=== PATIENT | male | born 1970 | race African-American/Black ===

== ENCOUNTER 2017-05-15 07:02 | Inpatient (IN) ==
[2017-05-15] MEDS ORDERED: ENOXAPARIN 60 MG/0.6 ML SYRINGE ONE (07:04)
[2017-05-15] MEDS ORDERED: ETOMIDATE 20 MG/10 ML VIAL IV ONE ×2 (07:05→07:36)
[2017-05-15] MEDS ORDERED: VECURONIUM 10 MG VIAL IV ONE ×2 (07:05→07:37)
[2017-05-15] MEDS ORDERED: ENOXAPARIN 60 MG/0.6 ML SYRINGE SUBCUT ONE (07:06)
[2017-05-15] MEDS ORDERED: HEPARIN/NACL 0.9% 2 UNITS/ML 500 ML IV ONE (07:21)
--- NOTE | 2017-05-15 07:23 | Emergency Department Note ---
Dana Radford Emily, am scribing for, and in the presence of, Ochoa Beltran MD 07:13. Ruby Radford James D, MD, personally performed the services described in this documentation, ascribed by Gabriela Cortez in my presence, and it is both accurate and complete 719 . Arrival - Arrival Stated Complaint: chest pain/ resp distress. Mode of Arrival: Stretcher Limitations: No Limitations Source: Patient, EMS, RN Notes Reviewed - History of Present Illness HPI Narrative: Pt is a 47 y/o male who was brought to ED by EMS for further evaluation of elevated STEMI while at home. EMS upon arrival pt was diaphoretic, room air was 84, low grade fever of 100, and chest pain with SOB. EMS notes pt was stating "I can't breath, can't breath." Pt states he has [place] and SOB, but denies diaphoresis and non radiating pain. Pt is a smoker, but denies heart issues, taking aspirin or lovenox daily. Pt is being intubated upon arrival due to SOB arriving in ED. Onset (ago): hour(s) Consistency: constant Severity: moderate, severe Severity scale (1-10): 8 Quality: aching, sharp Allergies/Adverse Reactions: Allergies Allergy/AdvReac Type Severity Reaction Status Date / Time No Known Allergies Allergy Unverified 05/15/17 07:13 Review of System - Review of System 12 point system: reviewed and no additional remarkable complaints except as stated - Review of System Constitutional: Present: diaphoresis, fever (low grade of 100) Respiratory: Present: respiratory distress (SOB) Cardiovascular: Present: chest pain (non radiating). Absent: syncope Gastrointestinal: Absent: abdominal pain, nausea Musculoskeletal: Absent: arm pain, neck pain Skin: Absent: rash Neurological: Present: headache Medical,Surgical,& Family Hx - Social History Marital Status: Single Functional capacity: independent ambulation Exam Vital Signs: Vital Signs Temperature 100.0 F H 05/15/17 07:04 Pulse Rate 104 H 05/15/17 07:04 Respiratory Rate 48 H 05/15/17 07:04 Blood Pressure 127/66 05/15/17 07:04 O2 Sat by Pulse Oximetry 100 05/15/17 07:17 GENERAL: This is a well-nourished well-developed acutely ill appearing black male in no apparent distress. Diaphoretic. VITAL SIGNS: Reviewed O2 sat was 80% in route. HEENT: Head is atraumatic and normocephalic. Pupils are equal round react to light. Extraocular movements are intact. Oropharynx is benign with moist mucous membranes. NECK: Neck is soft and supple without tenderness. There are no masses. There is no lymphadenopathy. LUNGS: Lungs are clear to auscultation. Chest rises symmetrically. There is no chest wall tenderness. CV: Heart is regular rate and rhythm without murmurs rubs or gallops. ABDOMEN: Abdomen is soft, nontender to palpation. There are no abdominal abnormal masses palpated. There is no organomegaly. Bowel sounds are present and active. SKIN: Skin is warm and dry. No rash. EXTREMITIES: Patient has full range of motion without tenderness. There is no pedal edema. NEUROLOGIC: Awake alert and oriented 4. Cranial nerves II through XII are grossly intact. Motor is 5 over 5 in all extremities bilaterally. Deep tendon reflexes are 2+ and bilaterally equal. Course Course Narrative: Patient received aspirin, Lovenox, etomidate, and vecuronium. The patient was intubated prior to transfer to the [facility] for left heart cath and possible PCI. - Consultations Consultation #1: Patient was taken immediately to the [facility] by Dr. Barrios due to patient's abnormal EKG. The patient was given Lovenox and aspirin prior to transfer to the [facility]. Patient will be placed on propofol infusion Time: 07:23 Procedures - Intubation Time out performed: No sedative: Etomidate Mg Given: 20 paralytic: Vecuronium Mg Given: 10 Laryngoscope: fiber optic video scope ET Tube Size: 8 ET Tube Uncuffed: No Tube Secured Depth (cm): 23 Tube Secured Location: teeth Tube Placement Confirmation: visualized tube passing through cords, equal breath sounds bilaterally, no breath sounds over epigastrium, confirmation detector color change Patient Tolerated Procedure: well Intubation Complications: none Results - Labs Lab Results: I have reviewed the patients labs - EKG EKG results: interpreted by ERMD - Impressions EKG: Sinus tachycardia with a rate of 105, peak T waves consistent with hyperkalemia. Slight elevation of ST segments in V3 V4 without reciprocal changes. - Diagnostic Findings Procedure: Chest x-ray: image reviewed by me Critical Care Time Critical Care Time: No Disposition Clinical Impression: Chest pain, Respiratory distress, Abnormal EKG, Fever Case discussed with: patient, patient's family Disposition: Still a Patient Condition: Critical
[2017-05-15 07:35] LABS: Basophils # 0.1 10*3/uL (0.0-0.2); Basophils % 0.4 % (0.0-0.8); Eosinophils # 0.1 10*3/uL (0.0-0.87); Eosinophils % 0.5 % (0.00-10.9); Hematocrit 46.9 VOL% (42.0-52.0); Hemoglobin 15.6 GM/DL (14.0-18.0); Immature Granulocytes % 0.7 %; Immature Granulocytes Absolute 0.12 #; Lymphocytes # 2.1 10*3/uL (1.4-4.0); Lymphocytes % 12.4 % (21.2-54.2); Mean Corpuscular HGB Conc 33.3 GM/DL (32-36); Mean Corpuscular Hemoglobin 28 PG (27-34); Mean Corpuscular Volume 84.2 FL (87-102); Mean Platelet Volume 9.2 FL (9.6-12.0); Monocytes # 0.7 10*3/uL (0.11-0.8); Monocytes % 4.1 % (1.7-12.7); Neutrophils # 13.9 10*3/uL (1.4-7.4); Neutrophils % 81.9 % (38.7-73.9); Platelet Count 250 T/CUMM (130-400); Red Blood Count 5.57 MC/CUMM (3.8-5.5); Red Cell Distribution Width 14.9 % (9.3-17.3)
--- NOTE | 2017-05-15 07:38 | XRay Report ---
Portable chest Date: 05/15/2017 Clinical history: Chest pain Comparison: 09/17/2014 Technique: Portable AP supine chest Findings: The heart is small and compressed by the over expanded lungs. Artifactual densities limit the exam. Endotracheal tube is in satisfactory position. Stable mediastinum and osseous structures. Calcification in the aortic knob. Impression: Endotracheal tube in satisfactory position. The lungs are significantly over expanded. Artifactual densities limit the exam. PROCEDURE INTERPRETED AT [facility] DEPARTMENT OF RADIOLOGY Final Report Signed by: Dr. Brenda Manzanares
[2017-05-15 07:39] LABS: Barbiturates Screen,Urine Negative (Negative); Benzodiazepines Screen,Urine Negative (Negative); Cannabinoid Screen,Urine Positive (Negative); Opiate Screen,Urine Negative (Negative); Phencyclidine Screen,Urine Negative (Negative)
[2017-05-15 07:40] LABS: Apearance,Urine Clear (Clear); Bilirubin,Urine Negative (Negative); Blood, Urine Trace mg/dL (Negative); Glucose,Urine (UA) Negative (Negative); Ketones,Urine 25 mg/dL (Negative); Mucus,Urine Occasional /LPF (Occasional); Nitrite,Urine Negative (Negative); Protein,Urine 30 MG/DL; RBC,Urine 2 /HPF (0-4); Squamous Epithelial Cell,Urine Occasional /HPF (0-10); Urine Color Yellow (Yellow); WBC,Urine <1 /HPF (0-6)
--- NOTE | 2017-05-15 07:45 | EKG Report ---
Stationary ECG Study [facility] ER Test Date: 05/15/2017 7:08:28 AM Pat Name: ABDIRAHMAN RAMIREZ Department: Room: C001 Gender: M Utility Ar[employer]ist: : 1970 Requested by: Ochoa Clemente Order Number: [id number] Reading MD: ELIDIA JOHNSON Intervals Colver Rate: 97 P: 78 NC: 147 QRS: 34 QRSD: 82 T: 62 QT: 332 QTc: 386 Interpretive Statements SINUS RHYTHM WITH MARKED SINUS ARRHYTHMIA Electronically Signed On 05-15-17 16:49:06 CDT by ELIDIA JOHNSON [email or web address]
[2017-05-15 07:56] LABS: Albumin 4.1 G/DL (3.4-5.0); Bilirubin,Total 0.6 MG/DL (0.2-1.0); Calcium 9.1 MG/DL (8.5-10.1); Magnesium 2.3 MG/DL (1.8-2.4); Osmolality,Calculated 275.4 MOS/KG (273-304); Potassium 3.9 MMOL/L (3.5-5.1); Total Protein 7.8 G/DL (6.4-8.3)
[2017-05-15 08:02] LABS: D-Dimer <= 0.5 MG/L FEU; INR 0.9; PT Patient Result 9.4 SECS; Partial Thromboplastin Time 28.9 SECS (0-40)
--- NOTE | 2017-05-15 08:09 | Cardiac Catheterization ---
Date of Procedure:: 05/15/17 Pre-op Diagnosis: Chest pain hypertension abnormal EKG Post-op diagnosis: same Procedure: Cardiac catheterization procedure note #1 left heart catheterization #2 selective coronary angiography #3 left ventriculography #4 aortogram Ximenaipaque was used for procedure Description of procedure The patient was brought in by Manjeet with acute chest pain and shortness of breath and required intubation emergency room. EKG was abnormal. Following sterile preparation draping of the right groin local anesthesia was achieved by infiltration 1% Xylocaine. Using a Cook needle the right femoral artery was cannulated and a #6 sheath was inserted. A 6 Guamanian pigtail catheter was advanced retrograde across her valve into the left ventricle and the end-diastolic pressure was recorded. Left ventriculography was performed the MENDEZ projection using 24 cc of contrast. A pullback was made across phytic valve. An aortogram was then done in the PERUVIAN projection using 40 cc of contrast. Catheter change for a 6 Guamanian left Benny catheter and the left main was cannulated and coronary angiography was performed in several MENDEZ and PERUVIAN projections. Catheter change for a 6 Guamanian right Amplatz catheter and right coronary atrophy was performed in MENDEZ and PERUVIAN projections. Catheter and sheath were then removed and the femoral arch Forest sealed percutaneous minx closure device with prompt cessation of bleeding and prompt return of femoral and foot pulses. The patient received IV nitroglycerin and IV labetalol to begin blood pressure control. Hemodynamic data Aortic pressure 206/116 mean 156 Left ventricle 206/34 Selective coronary angiography Left main trunk is patent bifurcates. The LAD is a large vessel wraps on the apex. It is mild proximal irregularities only. The diagonal branch is widely patent. The circumflex was small and patent. The dominant coronary artery is widely patent throughout its course with mild luminal irregularities only. Left ventriculography Ejection fraction 55%. No wall motion abnormalities. No mitral regurgitation. Aortogram The proximal aortic root is normal in size and contour. No aortic insufficiency. No aortic dissection. Conclusions #1 increased LVEDP 34 #2 ejection fraction 55% no wall motion abnormalities #3 no mitral regurgitation #4 no aortic valve gradient #5 widely patent coronary arteries with mild luminal irregularities only #6 aortogram-no AI and no dissection Disposition this patient has untreated hypertensive heart disease. Blood pressure 206/116 and EDP was 34. The coronary arteries are widely patent and ventricular function is preserved. Aortogram showed no aortic dissection. Urine drug screen is pending. He will be started on BP medication and the weaned will be weaned as tolerated. His sister Cindy had to go to work and did not stay for the heart cath results. Implants: None Anesthesia: moderate conscious sedation Surgeon / Physician: Pierce Barrios Estimated blood loss: minimal Specimens: none sent Condition: stable Disposition: ICU/CCU - Medications / Follow-up
[2017-05-15] MEDS ORDERED: ONDANSETRON 4 MG/2 ML VIAL IV PRN (08:10)
--- NOTE | 2017-05-15 08:22 | Cardiology History & Physical ---
History of Present Illness History of present illness: History and physical 47-year-old man was at a friend's house early this a.m. and called EMS for chest pain and shortness of breath. EKG showed sinus rhythm with preserved airways and ST elevation. Blood pressure was 180/110 emergency room patient intubated for respiratory distress by Dr. Beltran. Minimal history was obtained from his sister Cindy. The patient has no home and is a vagabond. He does drink alcohol regularly and he smokes at least one pack of cigarettes daily. She is unsure about his recreational drug history. He has been told that he had hypertension in the past but does not take medication. No history of stroke. No history of diabetes. The sister is not aware of any other history of chest pain. The patient is a . His is . He has 4 children. He had intestinal surgery as a child and no other surgical procedures. Blood pressure is 180/110 pulse is 102 and regular the patient is intubated and sedated. Rhythm is tachycardic but I hear no murmur or gallop. Decreased breath sounds but clear. Neck veins are flat. Femoral pulses are 2+ without bruit abdomen is soft benign distal pulses 2+ symmetric Impression New onset chest pain and shortness of breath with abnormal EKG. This does not look STEMI by EKG Untreated hypertension Tobacco abuse EtOH abuse Chest x-ray shows hyperinflated lung field with a vertical heart but no CHF or infiltrate Plan Emergent heart cath. I discussed the cath with his sister Cindy who signed the consent. Begin BP meds with IV nitro and beta-ankur Lab data pending Consult pulmonary for ventilator support Allergies Allergy/AdvReac Type Severity Reaction Status Date / Time No Known Allergies Allergy Unverified 05/15/17 07:13 Medical,Surgical,& Family Hx - Medical History Cardio: History of: Hypertension - Social History Smoking Status: Current every day smoker Frequency of Alcohol Use: None Type of Drug Use: None Cardiology Physical Exam - Constitutional Vitals: Vital Signs Temp Pulse Resp BP Pulse Ox 100.0 F H 104 H 48 H 127/66 100 05/15/17 07:04 05/15/17 07:04 05/15/17 07:04 05/15/17 07:04 05/15/17 07:17 Intake and Output 05/14/17 05/15/17 05/15/17 23:59 07:59 15:59 Output Total 200 / 200 Balance -200 / -200 Output: Urine 100 / 100 Post Void Residual Amount 100 / 100 Uretheral (Richter) 100 / 100 Other: Voiding Method Indwelling Catheter Weight 72.575 kg Patient Weight 05/15/17 23:59 Weight 72.575 kg Result/EKG - Labs CBC & BMP: 05/15/17 07:10 05/15/17 07:10 Labs: Laboratory Results - last 24 hr 05/15/17 05/15/17 05/15/17 07:10 07:10 07:10 WBC RBC Hgb Hct MCV MCH MCHC RDW Plt Count MPV Neut % (Auto) Lymph % (Auto) [place] % (Auto) Eos % (Auto) Baso % (Auto) Neut # (Auto) Lymph # (Auto) [place] # (Auto) Eos # (Auto) Baso # (Auto) Immature Gran % Nucleated RBC % Immature Gran # Nucleated RBCs # Immature Plt Fraction INR 0.9 PT Patient/Control Mix 9.4 D-Dimer, Quantitative <= 0.5 Circ Anticoag PTT 28.9 Sodium 140 Potassium 3.9 Chloride 103 Carbon Dioxide 28 Anion Gap 12.9 BUN 7 Creatinine 0.90 GFR Calculation 131 BUN/Creatinine Ratio 7.00 Glucose 80 Calculated Osmolality 275.4 Calcium 9.1 Magnesium 2.3 Total Bilirubin 0.60 AST 36 ALT 30 Alkaline Phosphatase 71 Troponin I Total Protein 7.8 Albumin 4.1 Globulin 3.7 H Albumin/Globulin Ratio 1.1 Urine Color Yellow Urine Appearance Clear Urine pH 5.0 Ur Specific Hurricane 1.030 Urine Protein 30 Urine Glucose (UA) Negative Urine Ketones 25 Urine Blood Trace Urine Nitrate Negative Urine Bilirubin Negative Urine Urobilinogen 2.0 H Urine Leukocytes Negative Urine RBC 2 Urine WBC <1 Ur Squamous Epith Cells Occasional Urine Mucus Occasional Ur Culture Indicated? Ordered separately Urine Opiates Screen Ur Barbiturates Screen Ur Phencyclidine Scrn U Amphetamine/Methamph U Benzodiazepines Scrn U Cocaine Metab Screen U Cannabinoids Screen 05/15/17 05/15/17 05/15/17 07:10 07:10 07:10 WBC 17.0 H RBC 5.57 H Hgb 15.6 Hct 46.9 MCV 84.2 L MCH 28 MCHC 33.3 RDW 14.9 Plt Count 250 MPV 9.2 L Neut % (Auto) 81.9 H Lymph % (Auto) 12.4 L [place] % (Auto) 4.1 Eos % (Auto) 0.5 Baso % (Auto) 0.4 Neut # (Auto) 13.9 H Lymph # (Auto) 2.1 [place] # (Auto) 0.7 Eos # (Auto) 0.1 Baso # (Auto) 0.1 Immature Gran % 0.7 Nucleated RBC % 0.0 Immature Gran # 0.12 Nucleated RBCs # 0.00 Immature Plt Fraction 0.0 INR PT Patient/Control Mix D-Dimer, Quantitative Circ Anticoag PTT Sodium Potassium Chloride Carbon Dioxide Anion Gap BUN Creatinine GFR Calculation BUN/Creatinine Ratio Glucose Calculated Osmolality Calcium Magnesium Total Bilirubin AST ALT Alkaline Phosphatase Troponin I < 0.015 Total Protein Albumin Globulin Albumin/Globulin Ratio Urine Color Urine Appearance Urine pH Ur Specific Hurricane Urine Protein Urine Glucose (UA) Urine Ketones Urine Blood Urine Nitrate Urine Bilirubin Urine Urobilinogen Urine Leukocytes Urine RBC Urine WBC Ur Squamous Epith Cells Urine Mucus Ur Culture Indicated? Urine Opiates Screen Negative Ur Barbiturates Screen Negative Ur Phencyclidine Scrn Negative U Amphetamine/Methamph Negative U Benzodiazepines Scrn Negative U Cocaine Metab Screen Positive H U Cannabinoids Screen Positive H Quality Measures - VTE Contraindication to Mechanical VTE Prophylaxis: Trauma to Legs
[2017-05-15] MEDS ORDERED: SODIUM CHLORIDE 0.9% 1,000 ML IV SCH (08:30)
[2017-05-15 08:55] LABS: Risk Ratio 1.44; VLDL CHOLESTEROL 15.6 MG/DL
[2017-05-15] MEDS ORDERED: LABETALOL 100 MG/20 ML VIAL IV ONE (09:31)
[2017-05-15] MEDS ORDERED: LIDOCAINE 1% 20 ML VIAL ONE (09:31)
[2017-05-15] MEDS ORDERED: NITROGLYCERIN 50 MG/250 ML BOTTLE IV ONE (09:31)
[2017-05-15] MEDS ORDERED: PROPOFOL 1,000 MG/100 ML BOTTLE IV ONE ×3 (09:31→10:33)
[2017-05-15 09:57] LABS: ABG Base Excess -2.5 MMOL/L (-2.5-2.5); ABG HCO3 21.4 MMOL/L (20-26); ABG Oxygen Saturation 55.6 % (95-100); ABG TCO2 28.5 MMOL/L (23-27)
[2017-05-15 09:59] LABS: ABG PH 7.134 (7.35-7.45)
[2017-05-15 10:00] LABS: ABG PCO2 92.5 MM HG (35-48); ABG PO2 39.9 MM HG (80-95)
[2017-05-15 10:27] LABS: ABG Base Excess -2.8 MMOL/L (-2.5-2.5); ABG HCO3 21.8 MMOL/L (20-26); ABG Oxygen Saturation 84.4 % (95-100); ABG PCO2 60.6 MM HG (35-48); ABG PH 7.245 (7.35-7.45); ABG PO2 58.5 MM HG (80-95); ABG TCO2 23.2 MMOL/L (23-27)
[2017-05-15] MEDS ORDERED: MIDAZOLAM 2 MG/2 ML VIAL ONE (11:17)
[2017-05-15] MEDS: MIDAZOLAM 2 MG/2 ML VIAL IV PRN ×6 (11:20→22:34)
[2017-05-15] MEDS: PROPOFOL 1,000 MG/100 ML BOTTLE IV SCH ×3 (11:27→18:52)
[2017-05-15] MEDS: PANTOPRAZOLE 40 MG VIAL IV SCH (11:42)
[2017-05-15] MEDS: ALBUTEROL/IPRATROPIUM 3 ML NEB RESP TX SCH ×3 (12:00→19:47)
[2017-05-15] MEDS ORDERED: methylPREDNISolone SOD SUC 125 MG/2 ML VIAL ONE (12:30)
[2017-05-15] MEDS: methylPREDNISolone SOD SUC 40 MG/1 ML VIAL IV SCH ×3 (12:36→23:12)
[2017-05-15] MEDS: FAMOTIDINE 20 MG/2 ML VIAL IV SCH ×2 (12:44→18:34)
[2017-05-15] MEDS: LISINOPRIL 10 MG TABLET NG SCH (12:49)
[2017-05-15] MEDS: CARVEDILOL 6.25 MG TABLET NG SCH ×2 (12:50→16:55)
--- NOTE | 2017-05-15 14:24 | Pulmonology Consult Note ---
Assessment and Plan (1) Smoker Status: Acute Assessment and plan: The patient apparently smokes and uses drugs. Current Visit: Yes (2) COPD exacerbation Status: Acute Assessment and plan: The patient had respiratory distress and has considerable bronchospasm and CO2 retention. We will continue steroids and bronchodilator therapy. Current Visit: Yes (3) Chest pain Status: Acute Assessment and plan: Patient came in with chest pain and was taken to the catheterization lab. His coronaries were apparently open. Current Visit: Yes (4) Respiratory distress Status: Acute Assessment and plan: The patient was in distress and was intubated. Will keep him sedated for now. Current Visit: Yes (5) Abnormal EKG Status: Acute Assessment and plan: Patient has an abnormal EKG probably from cocaine usage. Current Visit: Yes History of Present Illness Chief complaint: Ventilator management History of present illness: Mr. Pérez is a 47 year old black male that apparently is a smoker nondrinker and has been using cocaine. The paramedics were called to a friend's house and he was having severe distress with elevated blood pressure. He apparently had respiratory distress and had to be intubated. He was taken to the catheterization lab and his coronary arteries were okay. He has been agitated on the ventilator. He had significant CO2 retention and hypoxemia. His chest x -ray suggests severe COPD. He has been having wheezing and is going be kept on the ventilator for now. He is finally sedated and more comfortable. He has a past history of hypertension and he is a smoker. Allergies Allergy/AdvReac Type Severity Reaction Status Date / Time No Known Allergies Allergy Unverified 05/15/17 07:13 ROS unobtainable: due to endotracheal tube (He is unable to give any history) Exam (Pulmonay) H&P - Constitutional Vitals: Period Temp Pulse Resp BP Sys/Hernandez Pulse Ox Last 24 Hr 100.0 F-100.0 F 100-104 17-48 127-127/66-66 86-100 General appearance: under weight, other (The patient is sedated now on the ventilator.) - Head Head exam: Present: normal inspection, normocephalic - Eye Eye exam: Present: EOMI. Absent: scleral icterus Pupils: Present: SKYLAR - ENT ENT exam: Present: normal exam, other (ET tube is in good position) - Neck Neck exam: Absent: lymphadenopathy, thyromegaly - Respiratory Respiratory exam: Present: wheezes (Patient has fair breath sounds but does have some wheezing.) - Cardiovascular Cardiovascular exam: Present: regular rate and rhythm. Absent: gallop, systolic murmur - GI/Abdominal GI/Abdominal exam: Present: normal bowel sounds, soft. Absent: organomegaly, tenderness - Extremities Exam Extremities exam: Absent: calf tenderness, edema - Neurological Exam Neurological exam: Present: altered (Patient gets agitated easily.) - Psychiatric Psychiatric exam: Present: agitated, anxious - Skin Skin exam: Present: warm, dry Medical,Surgical,& Family Hx - Medical History Cardio: History of: Hypertension - Social History Smoking Status: Current every day smoker Frequency of Alcohol Use: Frequently Type of Drug Use: Cocaine Results - Labs CBC & BMP: 05/15/17 07:10 05/15/17 07:10 Labs: PO2 is 58 with a PCO2 of 60 and a pH of 7.24 - Diagnostic Findings Procedure: Chest x-ray: image reviewed by me, report reviewed by me (Chest x- ray suggests severe COPD changes.) Quality Measures - VTE Contraindication to Mechanical VTE Prophylaxis: Trauma to Legs
--- NOTE | 2017-05-15 18:32 | ECHO Report ---
Maynor Pérez Exam Date: 05/15/2017 08:49 Referring Physician: Technologist: Giovanna Hansen RDCS Age: 47 Ht (in): 70 Wt (lb): 160 Gender: M Exam Location: [facility] Echo Indications: Chest pain, unspecified, Respiratory distress - on vent, Abnormal electrocardiogram [ECG] [EKG], CAD, Fever, Nicotine dependence, cigarettes, uncomplicated, ETOH abuse, Positive drug screen BP: 99 / 58 HR: 93 Rhythm: Sinus Technical Quality: Good IMPRESSIONS EF 60 % . Moderate left ventricular hypertrophy. Grade I/IV diastolic dysfunction (abnormal relaxation filling pattern), normal to mildly elevated filling pressures. The right ventricle is normal in size and function. The right atrium is normal in size. The left atrium is normal in size. Morphologically normal mitral valve. No mitral valve regurgitation. The aortic valve is trileaflet and has normal motion. No aortic valve regurgitation. Mild tricuspid valve regurgitation. PAP35 mmHG. Pulmonic valve not well visualized. Normal pericardium without effusion. Normal ascending aorta dimension. MEASUREMENTS (Male / Female) Normal Values 2D ECHO LV Diastolic Diameter PLAX 4.3 cm 4.2 - 5.9 / 3.9 - 5.3 cm LV Systolic Diameter PLAX 2.0 cm LV Fractional Shortening PLAX 53.4 % IVS Diastolic Thickness 0.9 cm 0.6 - 1.0 / 0.6 - 0.9 cm LVPW Diastolic Thickness 1.0 cm 0.6 - 1.0 / 0.6 - 0.9 cm RV Internal Dim ED PLAX 2.9 cm Aortic Root Diameter 2.9 cm LA Systolic Diameter LX 2.4 cm 3.0 - 4.0 / 2.7 - 3.8 cm DOPPLER TR Peak Velocity 252.0 cm/s TR Peak Gradient 25.4 mmHg FINDINGS Left Ventricle EF 60 % .moderate left ventricular hypertrophy. Grade I/IV diastolic dysfunction (abnormal relaxation filling pattern), normal to mildly elevated filling pressures. Right Ventricle The right ventricle is normal in size and function. Right Atrium The right atrium is normal in size. Left Atrium The left atrium is normal in size. Mitral Valve Morphologically normal mitral valve. No mitral valve regurgitation. Aortic Valve The aortic valve is trileaflet and has normal motion. No aortic valve regurgitation. Tricuspid Valve Morphologically normal tricuspid valve. Mild tricuspid valve regurgitation. .PAP35 mmHG. Pulmonic Valve Pulmonic valve not well visualized. Pericardium Normal pericardium without effusion. Aorta Normal ascending aorta dimension. Dimitris Bariros (Electronically Signed) Final Date: 15 May 2017 18:22
[2017-05-16] MEDS: ALBUTEROL/IPRATROPIUM 3 ML NEB RESP TX SCH ×7 (00:20→23:55)
[2017-05-16] MEDS: PROPOFOL 1,000 MG/100 ML BOTTLE IV SCH ×4 (00:57→11:33)
[2017-05-16] MEDS: MIDAZOLAM 2 MG/2 ML VIAL IV PRN ×4 (02:14→12:45)
[2017-05-16 04:23] LABS: ABG Base Excess 1.9 MMOL/L (-2.5-2.5); ABG HCO3 26.1 MMOL/L (20-26); ABG Oxygen Saturation 97.9 % (95-100); ABG PCO2 49.2 MM HG (35-48); ABG PH 7.365 (7.35-7.45); ABG TCO2 24.5 MMOL/L (23-27)
[2017-05-16 06:02] LABS: Basophils % 0.1 % (0.0-0.8); Eosinophils # 0.1 10*3/uL (0.0-0.87); Eosinophils % 0.4 % (0.00-10.9); Hematocrit 43.7 VOL% (42.0-52.0); Hemoglobin 14.5 GM/DL (14.0-18.0); Immature Granulocytes % 0.4 %; Immature Granulocytes Absolute 0.05 #; Lymphocytes # 1.4 10*3/uL (1.4-4.0); Lymphocytes % 10.2 % (21.2-54.2); Mean Corpuscular HGB Conc 33.2 GM/DL (32-36); Mean Corpuscular Hemoglobin 28 PG (27-34); Mean Platelet Volume 11.3 FL (9.6-12.0); Monocytes # 0.3 10*3/uL (0.11-0.8); Monocytes % 2.2 % (1.7-12.7); Neutrophils # 11.6 10*3/uL (1.4-7.4); Neutrophils % 86.7 % (38.7-73.9); Platelet Count 126 T/CUMM (130-400); Red Blood Count 5.14 MC/CUMM (3.8-5.5); Red Cell Distribution Width 14.7 % (9.3-17.3); White Blood Count 13.4 T/CUMM (4-12)
[2017-05-16] MEDS: methylPREDNISolone SOD SUC 40 MG/1 ML VIAL IV SCH ×3 (06:30→17:16)
[2017-05-16] MEDS: FAMOTIDINE 20 MG/2 ML VIAL IV SCH ×2 (06:31→18:47)
--- NOTE | 2017-05-16 07:23 | Cardiology Progress Note ---
Cardiology - PN: Subj Interval history: Cardiology note 47-year-old man admitted yesterday with chest pain and shortness of breath requiring intubation. Cardiac cath showed patent coronaries with ejection fraction 55% and no aortic dissection. Urine drug screen positive for cocaine and marijuana. Sedated on diprovan. Telemetry shows sinus rhythm in the 70s Blood pressure 130/80 off IV nitro O2 sat 100 on 60% FiO2 Regular rhythm no murmur or gallop Decreased breath sounds but clear Abdomen soft benign Right groin soft and dry. No bruit or hematoma. Distal pulses 2+ Lab data White count 13.4 hemoglobin 14.5 hematocrit 43.7 platelet count 126,000 Echo shows ejection fraction of 60% with moderate concentric LVH, grade 1 diastolic dysfunction, normal LA size, structurally normal valves, mild TR PA pressure 35 and no effusion Chest x-ray shows hyperinflated lungs with vertical heart and no infiltrate or heart failure Impression Untreated hypertension Cocaine abuse Widely patent coronaries ejection fraction 55% by cath and no dissection Tobacco abuse EtOH abuse COPD exacerbation Plan Prednisone nebs Carvedilol 6.25 mg twice daily Lisinopril 10 mg daily Wean vent as tolerated Exam (Progress Note) - Constitutional Vitals: Period Temp Pulse Resp BP Sys/Hernandez Pulse Ox Last 24 Hr 98.1 F-99.2 F 67-103 12-24 76-139/51-94 95-100 Result/EKG - Labs CBC & BMP: 05/16/17 04:41 05/15/17 07:10 Labs: Laboratory Results - last 24 hr 05/15/17 05/15/17 05/15/17 07:10 07:10 07:10 WBC RBC Hgb Hct MCV MCH MCHC RDW Plt Count MPV Neut % (Auto) Lymph % (Auto) Curry % (Auto) Eos % (Auto) Baso % (Auto) Neut # (Auto) Lymph # (Auto) Curry # (Auto) Eos # (Auto) Baso # (Auto) Immature Gran % Nucleated RBC % Immature Gran # Nucleated RBCs # Immature Plt Fraction INR 0.9 PT Patient/Control Mix 9.4 D-Dimer, Quantitative <= 0.5 Circ Anticoag PTT 28.9 ABG pH ABG pCO2 ABG pO2 ABG HCO3 ABG Total CO2 ABG O2 Saturation ABG Base Excess Sodium 140 Potassium 3.9 Chloride 103 Carbon Dioxide 28 Anion Gap 12.9 BUN 7 Creatinine 0.90 GFR Calculation 131 BUN/Creatinine Ratio 7.00 Glucose 80 Calculated Osmolality 275.4 Calcium 9.1 Magnesium 2.3 Total Bilirubin 0.60 AST 36 ALT 30 Alkaline Phosphatase 71 Troponin I B-Natriuretic Peptide Total Protein 7.8 Albumin 4.1 Globulin 3.7 H Albumin/Globulin Ratio 1.1 Triglycerides Cholesterol LDL Cholesterol VLDL Cholesterol HDL Cholesterol Heart Disease Risk Ratio Urine Color Yellow Urine Appearance Clear Urine pH 5.0 Ur Specific Mcdermitt 1.030 Urine Protein 30 Urine Glucose (UA) Negative Urine Ketones 25 Urine Blood Trace Urine Nitrate Negative Urine Bilirubin Negative Urine Urobilinogen 2.0 H Urine Leukocytes Negative Urine RBC 2 Urine WBC <1 Ur Squamous Epith Cells Occasional Urine Mucus Occasional Ur Culture Indicated? Ordered separately Urine Opiates Screen Ur Barbiturates Screen Ur Phencyclidine Scrn U Amphetamine/Methamph U Benzodiazepines Scrn U Cocaine Metab Screen U Cannabinoids Screen 05/15/17 05/15/17 05/15/17 07:10 07:10 07:10 WBC 17.0 H RBC 5.57 H Hgb 15.6 Hct 46.9 MCV 84.2 L MCH 28 MCHC 33.3 RDW 14.9 Plt Count 250 MPV 9.2 L Neut % (Auto) 81.9 H Lymph % (Auto) 12.4 L Curry % (Auto) 4.1 Eos % (Auto) 0.5 Baso % (Auto) 0.4 Neut # (Auto) 13.9 H Lymph # (Auto) 2.1 Curry # (Auto) 0.7 Eos # (Auto) 0.1 Baso # (Auto) 0.1 Immature Gran % 0.7 Nucleated RBC % 0.0 Immature Gran # 0.12 Nucleated RBCs # 0.00 Immature Plt Fraction 0.0 INR PT Patient/Control Mix D-Dimer, Quantitative Circ Anticoag PTT ABG pH ABG pCO2 ABG pO2 ABG HCO3 ABG Total CO2 ABG O2 Saturation ABG Base Excess Sodium Potassium Chloride Carbon Dioxide Anion Gap BUN Creatinine GFR Calculation BUN/Creatinine Ratio Glucose Calculated Osmolality Calcium Magnesium Total Bilirubin AST ALT Alkaline Phosphatase Troponin I B-Natriuretic Peptide 7 Total Protein Albumin Globulin Albumin/Globulin Ratio Triglycerides Cholesterol LDL Cholesterol VLDL Cholesterol HDL Cholesterol Heart Disease Risk Ratio Urine Color Urine Appearance Urine pH Ur Specific Mcdermitt Urine Protein Urine Glucose (UA) Urine Ketones Urine Blood Urine Nitrate Urine Bilirubin Urine Urobilinogen Urine Leukocytes Urine RBC Urine WBC Ur Squamous Epith Cells Urine Mucus Ur Culture Indicated? Urine Opiates Screen Negative Ur Barbiturates Screen Negative Ur Phencyclidine Scrn Negative U Amphetamine/Methamph Negative U Benzodiazepines Scrn Negative U Cocaine Metab Screen Positive H U Cannabinoids Screen Positive H 05/15/17 05/15/17 05/15/17 07:10 07:10 10:22 WBC RBC Hgb Hct MCV MCH MCHC RDW Plt Count MPV Neut % (Auto) Lymph % (Auto) Curry % (Auto) Eos % (Auto) Baso % (Auto) Neut # (Auto) Lymph # (Auto) Curry # (Auto) Eos # (Auto) Baso # (Auto) Immature Gran % Nucleated RBC % Immature Gran # Nucleated RBCs # Immature Plt Fraction INR PT Patient/Control Mix D-Dimer, Quantitative Circ Anticoag PTT ABG pH 7.245 L ABG pCO2 60.6 H ABG pO2 58.5 L ABG HCO3 21.8 ABG Total CO2 23.2 ABG O2 Saturation 84.4 L ABG Base Excess -2.8 L Sodium Potassium Chloride Carbon Dioxide Anion Gap BUN Creatinine GFR Calculation BUN/Creatinine Ratio Glucose Calculated Osmolality Calcium Magnesium Total Bilirubin AST ALT Alkaline Phosphatase Troponin I < 0.015 B-Natriuretic Peptide Total Protein Albumin Globulin Albumin/Globulin Ratio Triglycerides 78 Cholesterol 187 LDL Cholesterol 46.0 VLDL Cholesterol 15.6 HDL Cholesterol 130 H Heart Disease Risk Ratio 1.44 Urine Color Urine Appearance Urine pH Ur Specific Mcdermitt Urine Protein Urine Glucose (UA) Urine Ketones Urine Blood Urine Nitrate Urine Bilirubin Urine Urobilinogen Urine Leukocytes Urine RBC Urine WBC Ur Squamous Epith Cells Urine Mucus Ur Culture Indicated? Urine Opiates Screen Ur Barbiturates Screen Ur Phencyclidine Scrn U Amphetamine/Methamph U Benzodiazepines Scrn U Cocaine Metab Screen U Cannabinoids Screen 05/15/17 05/15/17 05/16/17 13:42 Unknown 04:24 WBC RBC Hgb Hct MCV MCH MCHC RDW Plt Count MPV Neut % (Auto) Lymph % (Auto) Curry % (Auto) Eos % (Auto) Baso % (Auto) Neut # (Auto) Lymph # (Auto) Curry # (Auto) Eos # (Auto) Baso # (Auto) Immature Gran % Nucleated RBC % Immature Gran # Nucleated RBCs # Immature Plt Fraction INR PT Patient/Control Mix D-Dimer, Quantitative Circ Anticoag PTT ABG pH 7.134 L* 7.365 ABG pCO2 92.5 H* 49.2 H ABG pO2 39.9 L* 111.0 H ABG HCO3 21.4 26.1 H ABG Total CO2 28.5 H 24.5 ABG O2 Saturation 55.6 L 97.9 ABG Base Excess -2.5 1.9 Sodium Potassium Chloride Carbon Dioxide Anion Gap BUN Creatinine GFR Calculation BUN/Creatinine Ratio Glucose Calculated Osmolality Calcium Magnesium Total Bilirubin AST ALT Alkaline Phosphatase Troponin I < 0.015 B-Natriuretic Peptide Total Protein Albumin Globulin Albumin/Globulin Ratio Triglycerides Cholesterol LDL Cholesterol VLDL Cholesterol HDL Cholesterol Heart Disease Risk Ratio Urine Color Urine Appearance Urine pH Ur Specific Mcdermitt Urine Protein Urine Glucose (UA) Urine Ketones Urine Blood Urine Nitrate Urine Bilirubin Urine Urobilinogen Urine Leukocytes Urine RBC Urine WBC Ur Squamous Epith Cells Urine Mucus Ur Culture Indicated? Urine Opiates Screen Ur Barbiturates Screen Ur Phencyclidine Scrn U Amphetamine/Methamph U Benzodiazepines Scrn U Cocaine Metab Screen U Cannabinoids Screen 05/16/17 04:41 WBC 13.4 H RBC 5.14 Hgb 14.5 Hct 43.7 MCV 85.0 L MCH 28 MCHC 33.2 RDW 14.7 Plt Count 126 L D MPV 11.3 Neut % (Auto) 86.7 H Lymph % (Auto) 10.2 L Curry % (Auto) 2.2 Eos % (Auto) 0.4 Baso % (Auto) 0.1 Neut # (Auto) 11.6 H Lymph # (Auto) 1.4 Curry # (Auto) 0.3 Eos # (Auto) 0.1 Baso # (Auto) 0.0 Immature Gran % 0.4 Nucleated RBC % 0.0 Immature Gran # 0.05 Nucleated RBCs # 0.00 Immature Plt Fraction INR PT Patient/Control Mix D-Dimer, Quantitative Circ Anticoag PTT ABG pH ABG pCO2 ABG pO2 ABG HCO3 ABG Total CO2 ABG O2 Saturation ABG Base Excess Sodium Potassium Chloride Carbon Dioxide Anion Gap BUN Creatinine GFR Calculation BUN/Creatinine Ratio Glucose Calculated Osmolality Calcium Magnesium Total Bilirubin AST ALT Alkaline Phosphatase Troponin I B-Natriuretic Peptide Total Protein Albumin Globulin Albumin/Globulin Ratio Triglycerides Cholesterol LDL Cholesterol VLDL Cholesterol HDL Cholesterol Heart Disease Risk Ratio Urine Color Urine Appearance Urine pH Ur Specific Mcdermitt Urine Protein Urine Glucose (UA) Urine Ketones Urine Blood Urine Nitrate Urine Bilirubin Urine Urobilinogen Urine Leukocytes Urine RBC Urine WBC Ur Squamous Epith Cells Urine Mucus Ur Culture Indicated? Urine Opiates Screen Ur Barbiturates Screen Ur Phencyclidine Scrn U Amphetamine/Methamph U Benzodiazepines Scrn U Cocaine Metab Screen U Cannabinoids Screen Quality Measures - VTE Contraindication to Mechanical VTE Prophylaxis: Trauma to Legs
--- NOTE | 2017-05-16 07:45 | XRay Report ---
Portable chest Date: 05/16/2017 Clinical history: Shortness of breath Comparison: 05/15/2017 Technique: Portable AP sitting chest Findings: The heart remains small and compressed by the over expanded lungs. Minimal atelectasis. Stable supportive devices and osseous structures. Calcification in aortic knob. Impression: No significant change in the appearance on the chest when compared to the previous exam. PROCEDURE INTERPRETED AT [facility] DEPARTMENT OF RADIOLOGY Final Report Signed by: Dr. Brenda Manzanares
[2017-05-16 08:36] LABS: Calcium 8.5 MG/DL (8.5-10.1); Magnesium 2.7 MG/DL (1.8-2.4); Osmolality,Calculated 279.5 MOS/KG (273-304); Potassium 4.5 MMOL/L (3.5-5.1); Risk Ratio 1.49; VLDL CHOLESTEROL 20.4 MG/DL
[2017-05-16] MEDS: PANTOPRAZOLE 40 MG VIAL IV SCH (08:39)
[2017-05-16] MEDS: CARVEDILOL 6.25 MG TABLET NG SCH ×2 (08:40→17:16)
[2017-05-16] MEDS: LISINOPRIL 10 MG TABLET NG SCH (08:40)
--- NOTE | 2017-05-16 08:42 | Pulmonology Progress Note ---
Pulmonary - PN: Subj Interval history: Patient is a 47-year-old black man that is a smoker and drinker and came in after using cocaine and was complaining of chest pain. He apparently was very agitated and restless and had to be intubated. He had very abnormal ABGs. He had a negative cardiac catheterization. He has been sedated and reasonably comfortable on the ventilator. He is doing much better now. He does have considerable wheezing. He is getting steroids and bronchodilators now. Exam (Progress Note) - Constitutional Vitals: Period Temp Pulse Resp BP Sys/Hernandez Pulse Ox Last 24 Hr 98.1 F-99.2 F 67-103 12-24 76-139/51-94 95-100 Exam: General appearance: under weight, other (The patient is sedated now on the ventilator. He still responds and gets anxious.) - Head Head exam: Present: normal inspection, normocephalic - Eye Eye exam: Present: EOMI. Absent: scleral icterus Pupils: Present: SKYLAR - ENT ENT exam: Present: normal exam, other (ET tube is in good position) - Neck Neck exam: Absent: lymphadenopathy, thyromegaly - Respiratory Respiratory exam: Present: He has better air movement but he still has some wheezing present. - Cardiovascular Cardiovascular exam: Present: regular rate and rhythm. Absent: gallop, systolic murmur - GI/Abdominal GI/Abdominal exam: Present: normal bowel sounds, soft. Absent: organomegaly, tenderness - Extremities Exam Extremities exam: Absent: calf tenderness, edema - Neurological Exam Neurological exam: Present: altered (Patient gets agitated easily.) - Psychiatric Psychiatric exam: Present: agitated, anxious - Skin Skin exam: Present: warm, dry Results - Labs CBC & BMP: 05/16/17 04:41 05/16/17 07:47 Labs: PO2 is 110 with a PCO2 of 49 and a pH of 7.36 - Diagnostic Findings Procedure: Chest x-ray: image reviewed by me, report reviewed by me (Chest x- ray is consistent with COPD.) Assessment and Plan (1) Smoker Status: Acute Assessment and plan: The patient apparently smokes and uses drugs. Current Visit: Yes (2) COPD exacerbation Status: Acute Assessment and plan: The patient had respiratory distress and has considerable bronchospasm and CO2 retention. We will continue steroids and bronchodilator therapy. His oxygenation is improved and his lungs are sounding a little better. I will continue with treatment. Current Visit: Yes (3) Chest pain Status: Acute Assessment and plan: Patient came in with chest pain and was taken to the catheterization lab. His coronaries were apparently open. Current Visit: Yes (4) Respiratory distress Status: Acute Assessment and plan: The patient was in distress and was intubated. He basically has acute respiratory failure and is more stable on the ventilator. Will start weaning trials. Current Visit: Yes (5) Abnormal EKG Status: Acute Assessment and plan: Patient has an abnormal EKG probably from cocaine usage. Current Visit: Yes
--- NOTE | 2017-05-16 14:17 | Physician Query Form ---
CLICK EDIT DOCUMENT TO SELECT QUERY ANSWER --> OK --> SIGN Adriana Julien RN [employer] W) [phone] (f) [phone] [email or web address] PROVIDERS: Make your selection(s) from the choices in EACH section by typing an "x" and enter comments in the comment section. Please use your independent medical judgment in providing your response. This request does not imply that any particular answer is desired or expected. CLINICAL INDICATORS: (Providers should not edit this section) Based on documentation of "acute respiratory distress". Respirations of 48, labored and shallow with use of accessory muscles. Pt. intubated in emergency department. If possible, please further clarify the type and acuity of respiratory diagnosis : ACUITY: ( x) Acute ( ) Chronic ( ) Acute on Chronic TYPE: ( ) Respiratory failure with hypoxia (x ) Respiratory failure with hypercapnia ( ) Respiratory Arrest ( ) Postprocedural/postoperative respiratory failure ( ) Respiratory Insufficiency ( ) ARDS (Adult/Acute Respiratory Distress Syndrome) ( ) Other, please specify: ( ) Clinically unable to determine Recognized criteria for respiratory failure PH <7.35 or >7.45 PO2 <60 PCO2 >50 RR >24 O2 Sat <90% on RA or <95% on O2 Use of accessory muscles Unable to speak in full sentences Intubation is not required COMMENTS: PLEASE ALSO DOCUMENT RESPONSE IN PROGRESS NOTES AND/OR DISCHARGE SUMMARY Use of terms such as suspected, likely, or probable (associated with a specific diagnosis that is being evaluated, monitored, or treated as if it exists) are acceptable and can be restated in the discharge summary if not ruled out. MTDD
[2017-05-17] MEDS: methylPREDNISolone SOD SUC 40 MG/1 ML VIAL IV SCH ×3 (00:29→17:26)
[2017-05-17] MEDS: ALBUTEROL/IPRATROPIUM 3 ML NEB RESP TX SCH ×4 (03:57→19:45)
--- NOTE | 2017-05-17 06:26 | Cardiology Progress Note ---
Cardiology - PN: Subj Interval history: Cardiology note 47-year-old man admitted with chest pain, untreated hypertension and COPD exacerbation. Urine drug screen positive for cocaine and marijuana. Patient was extubated yesterday. Telemetry shows sinus rhythm in the 80-90 range O2 sat 93% on 2 L Blood pressure 144/80 Alert and responsive Regular rhythm no murmur or gallop Decreased breath sounds with mild wheezing Abdomen benign Right groin soft and dry. No bruit or hematoma. Distal pulses 2+ Lab data today White count 13.4 hemoglobin 14.5 hematocrit 43.7 Sodium 139 potassium 4.5 chloride 101 CO2 25 BUN 17 creatinine 1.0 Glucose 125 Impression Untreated hypertension Cocaine abuse Widely patent coronaries ejection fraction 55% by cath and no dissection Tobacco abuse EtOH abuse COPD exacerbation Plan Pulmonary toilet prednisone and nebs Transfer to telemetry Carvedilol 6.25 mg twice daily Lisinopril 10 mg Exam (Progress Note) - Constitutional Vitals: Period Temp Pulse Resp BP Sys/Hernandez Pulse Ox Last 24 Hr 98.2 F-100 F 69-100 10-28 108-157/56-106 88-100 Result/EKG - Labs CBC & BMP: 05/16/17 04:41 05/16/17 07:47 Labs: Laboratory Results - last 24 hr 05/16/17 07:47 Sodium 139 Potassium 4.5 Chloride 101 Carbon Dioxide 33 H Anion Gap 9.5 BUN 17 Creatinine 1.00 GFR Calculation 108 BUN/Creatinine Ratio 17.00 Glucose 125 H Calculated Osmolality 279.5 Calcium 8.5 Magnesium 2.7 H Triglycerides 102 Cholesterol 146 LDL Cholesterol 36.0 VLDL Cholesterol 20.4 HDL Cholesterol 98 H Heart Disease Risk Ratio 1.49 Quality Measures - VTE Contraindication to Mechanical VTE Prophylaxis: Trauma to Legs
[2017-05-17] MEDS: FAMOTIDINE 20 MG/2 ML VIAL IV SCH ×2 (06:31→20:25)
[2017-05-17 06:32] LABS: Magnesium 2.8 MG/DL (1.8-2.4); Osmolality,Calculated 284.3 MOS/KG (273-304); Potassium 4.1 MMOL/L (3.5-5.1)
[2017-05-17] MEDS: CARVEDILOL 6.25 MG TABLET NG SCH ×2 (08:04→17:26)
--- NOTE | 2017-05-17 08:25 | Pulmonology Progress Note ---
Pulmonary - PN: Subj Interval history: Patient is a 47-year-old black man that is a smoker and drinker and came in after using cocaine and was complaining of chest pain. He apparently was very agitated and restless and had to be intubated. He had very abnormal ABGs. He had a negative cardiac catheterization. He did have considerable wheezing and CO2 retention early on. He has done much better and yesterday was extubated. He feels like he is breathing okay and able to cough fairly well. He is not having any chest pain. He does complain of a sore throat. He feels like he is breathing okay however. He does still have some wheezing. Exam (Progress Note) - Constitutional Vitals: Period Temp Pulse Resp BP Sys/Hernandez Pulse Ox Last 24 Hr 98.2 F-100 F 71-100 10-28 108-157/56-106 88-100 Exam: General appearance: under weight, other (The patient is alert and talking and looks comfortable now.) - Head Head exam: Present: normal inspection, normocephalic - Eye Eye exam: Present: EOMI. Absent: scleral icterus Pupils: Present: SKYLAR - ENT ENT exam: Present: normal exam, - Neck Neck exam: Absent: lymphadenopathy, thyromegaly - Respiratory Respiratory exam: Present: He has good breath sounds bilaterally but he does have some wheezing still. - Cardiovascular Cardiovascular exam: Present: regular rate and rhythm. Absent: gallop, systolic murmur - GI/Abdominal GI/Abdominal exam: Present: normal bowel sounds, soft. Absent: organomegaly, tenderness - Extremities Exam Extremities exam: Absent: calf tenderness, edema - Neurological Exam Neurological exam: Present: He is alert and comfortable and in no distress. He moves everything okay. - Psychiatric Psychiatric exam: Present: agitated, anxious - Skin Skin exam: Present: warm, dry Results - Labs CBC & BMP: 05/16/17 04:41 05/17/17 05:18 Assessment and Plan (1) Smoker Status: Acute Assessment and plan: The patient apparently smokes and uses drugs. Current Visit: Yes (2) COPD exacerbation Status: Acute Assessment and plan: The patient does wheeze frequently and is a smoker and has COPD. Will continue with steroids and bronchodilator therapy. Current Visit: Yes (3) Chest pain Status: Acute Assessment and plan: Patient came in with chest pain and was taken to the catheterization lab. His coronaries were apparently open. Current Visit: Yes (4) Respiratory distress Status: Resolved Assessment and plan: The patient is much better now and his respiratory distress has resolved. He will continue with bronchodilator therapy. He can move to a regular room. Current Visit: Yes (5) Abnormal EKG Status: Acute Assessment and plan: Patient has an abnormal EKG probably from cocaine usage. Current Visit: Yes
[2017-05-17] MEDS: PANTOPRAZOLE 40 MG VIAL IV SCH (09:00)
[2017-05-17] MEDS: LISINOPRIL 10 MG TABLET NG SCH (09:00)
[2017-05-18] MEDS: ALBUTEROL/IPRATROPIUM 3 ML NEB RESP TX SCH ×4 (00:17→19:29)
[2017-05-18] MEDS: methylPREDNISolone SOD SUC 40 MG/1 ML VIAL IV SCH ×2 (06:17→17:52)
[2017-05-18] MEDS: PANTOPRAZOLE 40 MG VIAL IV SCH (08:24)
[2017-05-18] MEDS: CARVEDILOL 6.25 MG TABLET NG SCH ×2 (08:24→17:52)
[2017-05-18] MEDS: LISINOPRIL 10 MG TABLET NG SCH (08:24)
[2017-05-18] MEDS: FAMOTIDINE 20 MG/2 ML VIAL IV SCH ×2 (08:26→19:57)
--- NOTE | 2017-05-18 09:25 | Cardiology Progress Note ---
Cardiology - PN: Subj Interval history: Cardiology note 47-year-old man admitted with chest pain untreated hypertension and COPD exacerbation. Urine drug screen positive for cocaine and marijuana. Cath showed patent coronaries ejection fraction 55% and no dissection. Telemetry shows steady sinus rhythm. Blood pressure 136/86 Decreased breath sounds with mild diffuse wheezing Regular rhythm no gallop Abdomen benign Right groin soft and dry Impression Untreated hypertension Cocaine abuse Widely patent coronaries EF 55% by cath Tobacco abuse EtOH abuse COPD exacerbation Plan pulmonary toilet Methylprednisolone and DuoNeb's Carvedilol 6.25 g twice daily Lisinopril 10 mg daily Exam (Progress Note) - Constitutional Vitals: Period Temp Pulse Resp BP Sys/Hernandez Pulse Ox Last 24 Hr 97.2 F-98.9 F 64-88 13-22 127-166/55-96 90-98 Result/EKG - Labs CBC & BMP: 05/16/17 04:41 05/17/17 05:18 Quality Measures - VTE Contraindication to Mechanical VTE Prophylaxis: Trauma to Legs
--- NOTE | 2017-05-18 16:03 | Pulmonology Progress Note ---
Pulmonary - PN: Subj Interval history: This is a 47-year-old black male who smokes and drinks and uses cocaine. I am seeing her for Dr. Khang Zuniga this man was admitted with chest pain. He had a normal cardiac cath. He was in significant distress and had to be intubated. He had severe hypercarbia and had bronchospasm. He is much better now. He is off the ventilator he is moved from ICU to CCU. The patient's lab and was reviewed Medicines reviewed. Vital signs see below. Unfortunately I cannot see this patient today because he was outside smoking. Exam (Progress Note) - Constitutional Vitals: Period Temp Pulse Resp BP Sys/Hernandez Pulse Ox Last 24 Hr 97.2 F-98.9 F 64-88 16-20 104-157/64-96 91-98 Results - Labs CBC & BMP: 05/16/17 04:41 05/17/17 05:18
[2017-05-18] MEDS: ACETAMINOPHEN 325 MG TABLET PO PRN (16:36)
[2017-05-19] MEDS: ALBUTEROL/IPRATROPIUM 3 ML NEB RESP TX SCH ×4 (00:20→18:51)
[2017-05-19] MEDS: methylPREDNISolone SOD SUC 40 MG/1 ML VIAL IV SCH ×2 (05:54→17:42)
[2017-05-19] MEDS: PANTOPRAZOLE 40 MG VIAL IV SCH (08:56)
[2017-05-19] MEDS: LISINOPRIL 10 MG TABLET NG SCH (08:56)
[2017-05-19] MEDS: CARVEDILOL 6.25 MG TABLET NG SCH ×2 (08:56→17:42)
[2017-05-19] MEDS: FAMOTIDINE 20 MG/2 ML VIAL IV SCH ×2 (08:58→21:15)
--- NOTE | 2017-05-19 10:11 | Cardiology Progress Note ---
Cardiology - PN: Subj Interval history: Cardiology note 47-year-old man admitted with chest pain untreated hypertension and COPD exacerbation. Urine drug screen was positive for cocaine and marijuana. Patient was off the floor last night smoking. Cath showed patent coronaries with ejection fraction 55% and no dissection. Blood pressure 150/92. Telemetry shows steady sinus rhythm Regular rhythm no murmur or gallop Decreased breath sounds with mild diffuse wheezing Abdomen nontender Right groin site looks good. No leg edema Impression Untreated hypertension Cocaine abuse Tobacco abuse Widely patent coronaries EF 55% by cath COPD exacerbation EtOH abuse Plan Steroids and duo nebs Pulmonary toilet Carvedilol 6.25 mg twice daily Increase lisinopril 10 mg twice daily Exam (Progress Note) - Constitutional Vitals: Period Temp Pulse Resp BP Sys/Hernandez Pulse Ox Last 24 Hr 97.8 F-98.8 F 70-88 16-20 104-170/64-101 93-99 Result/EKG - Labs CBC & BMP: 05/16/17 04:41 05/17/17 05:18 Labs: Laboratory Results - last 24 hr 05/18/17 20:11 POC Glucose 253 H Quality Measures - VTE Contraindication to Mechanical VTE Prophylaxis: Trauma to Legs
--- NOTE | 2017-05-19 12:54 | Pulmonology Progress Note ---
Pulmonary - PN: Subj Interval history: This is a 47-year-old black male who smokes and drinks and uses cocaine. I am seeing her for Dr. Khang Zuniga this man was admitted with chest pain. He had a normal cardiac cath. He was in significant distress and had to be intubated. He had severe hypercarbia and had bronchospasm. He is much better now. He is off the ventilator he is moved from ICU to CCU. The patient's lab and was reviewed Medicines reviewed. Vital signs see below. Unfortunately I cannot see this patient today because he was outside smoking. 05/19/2017 patient was in his room. He had just gotten back to his room from going outside and smoking in the regions of cigarette smoke. I discussed this with him briefly. He has no complaints. He is wheezing like a freight train. Physical exam. Vital signs. See below Psychiatric alert and oriented Neurologic. Cranial nerves are intact. Long track motor functions intact. Gait was not tested with the patient's able to get outside to smoke so I suppose his gait is stable General. No significant distress lying almost flat in bed. He smells of cigarette smoke Face. Symmetrical. No edema of the lips or tongue Neck. Symmetrical. No meningismus. Chest. Generalized high-pitched peripheral wheezes poor with prolonged incomplete expiration Heart. No gallop Abdomen nondistended. Positive bowel sounds Lower extremities. No obvious deep venous thrombophlebitis. The remainder the physical exam is noncontributory Plan. 1. See my note above. 2. This is a patient admitted with lung disease and and chest pain. He should consider stopping smoking. Exam (Progress Note) - Constitutional Vitals: Period Temp Pulse Resp BP Sys/Hernandez Pulse Ox Last 24 Hr 97 F-98.8 F 70-86 16-20 139-181/77-101 93-99 Results - Labs CBC & BMP: 05/16/17 04:41 05/17/17 05:18
[2017-05-19] MEDS: ACETAMINOPHEN 325 MG TABLET PO PRN (17:44)
[2017-05-19] MEDS: LISINOPRIL 10 MG TABLET PO SCH (21:15)
[2017-05-20] MEDS: ALBUTEROL/IPRATROPIUM 3 ML NEB RESP TX SCH ×4 (00:47→20:33)
[2017-05-20] MEDS: methylPREDNISolone SOD SUC 40 MG/1 ML VIAL IV SCH ×2 (06:05→18:04)
[2017-05-20] MEDS: LISINOPRIL 10 MG TABLET PO SCH (10:19)
[2017-05-20] MEDS: PANTOPRAZOLE 40 MG VIAL IV SCH (10:20)
[2017-05-20] MEDS: CARVEDILOL 6.25 MG TABLET NG SCH ×2 (10:20→18:04)
[2017-05-20] MEDS: FAMOTIDINE 20 MG/2 ML VIAL IV SCH ×2 (10:20→21:28)
--- NOTE | 2017-05-20 11:47 | Cardiology Progress Note ---
Cardiology - PN: Subj Interval history: Cardiology note 47-year-old man admitted with chest pain untreated hypertension and COPD exacerbation. Urine drug screen positive for cocaine and marijuana. Cath showed patent coronaries ejection fraction 55% and no dissection. Blood pressure 156/90 Telemetry shows steady sinus rhythm in the 80s Regular rhythm no murmur or gallop Decreased breath sounds with coarse rhonchi and mild wheezes Abdomen benign Right groin looks good . 2+ distal pulse Impression Untreated hypertension Cocaine abuse Tobacco abuse Widely patent coronaries EF 55% by cath COPD exacerbation EtOH abuse Plan Steroids and nebs Increase lisinopril 20 mg twice daily Carvedilol 6.25 mg twice daily Exam (Progress Note) - Constitutional Vitals: Period Temp Pulse Resp BP Sys/Hernandez Pulse Ox Last 24 Hr 96.7 F-98.6 F 71-96 16-20 133-181/84-97 95-100 Result/EKG - Labs CBC & BMP: 05/16/17 04:41 05/17/17 05:18 Quality Measures - VTE Contraindication to Mechanical VTE Prophylaxis: Trauma to Legs
--- NOTE | 2017-05-20 12:56 | Pulmonology Progress Note ---
Pulmonary - PN: Subj Interval history: This is a 47-year-old black male who smokes and drinks and uses cocaine. I am seeing her for Dr. Khang Zuniga this man was admitted with chest pain. He had a normal cardiac cath. He was in significant distress and had to be intubated. He had severe hypercarbia and had bronchospasm. He is much better now. He is off the ventilator he is moved from ICU to CCU. The patient's lab and was reviewed Medicines reviewed. Vital signs see below. Unfortunately I cannot see this patient today because he was outside smoking. 05/19/2017 patient was in his room. He had just gotten back to his room from going outside and smoking in the regions of cigarette smoke. I discussed this with him briefly. He has no complaints. He is wheezing like a freight train. 05/20/2017. Today the patient did not smell like cigarette smoke. He does when he did not go out side and smoke. Later on I bumped into his mother and another woman in the [place] and she asked me how he was doing and I told her he was smoking and she seemed totally surprised by all this. I asked her how she could go in the room and not smell. She had no idea. Labs been reviewed. Glucoses are under fair control. Patient still has some wheezes but these are better. I have discussed the case with Dr. Dimitris kennedy. Physical exam. Vital signs. See below Psychiatric alert and oriented Neurologic. Cranial nerves are intact. Long track motor functions intact. Gait was not tested with the patient's able to get outside to smoke so I suppose his gait is stable General. No significant distress lying almost flat in bed. He he does not smell like cigarettes this morning Face. Symmetrical. No edema of the lips or tongue Neck. Symmetrical. No meningismus. Chest. Generalized high-pitched peripheral wheezes somewhat improved over over yesterday's exam. Heart. No gallop Abdomen nondistended. Positive bowel sounds Lower extremities. No obvious deep venous thrombophlebitis. The remainder the physical exam is noncontributory Plan. 05/19/2017 1. See my note above. 2. This is a patient admitted with lung disease and and chest pain. He should consider stopping smoking. 05/20/2017. 1. See today's note above 2. Have discussed smoking. Discussed the need to stop 3. Still wheezing. Better. Exam (Progress Note) - Constitutional Vitals: Period Temp Pulse Resp BP Sys/Hernandez Pulse Ox Last 24 Hr 96.7 F-98.6 F 71-96 16-20 133-159/84-97 95-100 Results - Labs CBC & BMP: 05/16/17 04:41 05/17/17 05:18
[2017-05-20] MEDS: LISINOPRIL 20 MG TABLET PO SCH ×2 (13:39→21:28)
[2017-05-21] MEDS: ALBUTEROL/IPRATROPIUM 3 ML NEB RESP TX SCH ×4 (02:20→20:27)
[2017-05-21 06:18] LABS: Osmolality,Calculated 276.7 MOS/KG (273-304)
[2017-05-21] MEDS: methylPREDNISolone SOD SUC 40 MG/1 ML VIAL IV SCH (06:24)
[2017-05-21] MEDS: FAMOTIDINE 20 MG/2 ML VIAL IV SCH ×2 (08:42→21:10)
[2017-05-21] MEDS: LISINOPRIL 20 MG TABLET PO SCH ×2 (08:43→21:10)
[2017-05-21] MEDS: CARVEDILOL 6.25 MG TABLET NG SCH (08:44)
--- NOTE | 2017-05-21 08:59 | Pulmonology Progress Note ---
Pulmonary - PN: Subj Interval history: Patient is a 47-year-old black man that is a smoker and drinker and came in after using cocaine and was complaining of chest pain. He apparently was very agitated and restless and had to be intubated. He had very abnormal ABGs. He had a negative cardiac catheterization. He did have considerable wheezing and CO2 retention early on. He came off the ventilator okay and is done reasonably well. He still has some coughing and wheezing and still smokes. He is walking around the [place] and is feeling better. He does have considerable COPD. Exam (Progress Note) - Constitutional Vitals: Period Temp Pulse Resp BP Sys/Hernandez Pulse Ox Last 24 Hr 97.3 F-98.0 F 72-96 16-20 123-155/77-89 92-100 Exam: General appearance: under weight, other (The patient is alert and moving around okay and in no distress.) - Head Head exam: Present: normal inspection, normocephalic - Eye Eye exam: Present: EOMI. Absent: scleral icterus Pupils: Present: SKYLAR - ENT ENT exam: Present: normal exam, - Neck Neck exam: Absent: lymphadenopathy, thyromegaly - Respiratory Respiratory exam: Present: He is moving air fairly well but still has some wheezing. - Cardiovascular Cardiovascular exam: Present: regular rate and rhythm. Absent: gallop, systolic murmur - GI/Abdominal GI/Abdominal exam: Present: normal bowel sounds, soft. Absent: organomegaly, tenderness - Extremities Exam Extremities exam: Absent: calf tenderness, edema - Neurological Exam Neurological exam: Present: He is alert and comfortable and in no distress. He moves everything okay. - Psychiatric Psychiatric exam: Present: agitated, anxious - Skin Skin exam: Present: warm, dry Results - Labs CBC & BMP: 05/16/17 04:41 05/21/17 05:05 Assessment and Plan (1) Smoker Status: Acute Assessment and plan: The patient apparently smokes and uses drugs. He certainly needs to try to quit smoking Current Visit: Yes (2) COPD exacerbation Status: Acute Assessment and plan: The patient does wheeze frequently and is a smoker and has COPD. He is breathing comfortably but does need medications. We will continue with steroids and bronchodilator therapy. He can go home soon. Current Visit: Yes (3) Chest pain Status: Acute Assessment and plan: Patient came in with chest pain and was taken to the catheterization lab. His coronaries were apparently open. Current Visit: Yes (4) Respiratory distress Status: Resolved Assessment and plan: The patient is much better now and his respiratory distress has resolved. He will continue with bronchodilator therapy. Overall he is reasonably stable at present. Current Visit: Yes (5) Abnormal EKG Status: Acute Assessment and plan: Patient has an abnormal EKG probably from cocaine usage. Current Visit: Yes Specialty Discharge - Follow Up or Referrals
[2017-05-21] MEDS: FAMOTIDINE 20 MG TABLET PO SCH (10:17)
--- NOTE | 2017-05-21 11:25 | Cardiology Progress Note ---
<Claudette Grimaldo E - Last Filed: 05/21/17 11:10> Assessment and Plan - Time spent with patient Time spent with patient: Greater than 30 minutes Time spent discussing smoking cessation with patient: 3 to 10 minutes (1) Hypertension Status: Chronic Assessment and plan: SEE PLAN OF CARE LISTED BELOW Current Visit: Yes (2) Noncompliance Status: Chronic Assessment and plan: SEE PLAN OF CARE LISTED BELOW Current Visit: Yes (3) Cocaine abuse Status: Acute Assessment and plan: SEE PLAN OF CARE LISTED BELOW Current Visit: Yes (4) Marijuana abuse Status: Chronic Assessment and plan: SEE PLAN OF CARE LISTED BELOW Current Visit: Yes (5) Respiratory distress Status: Resolved Assessment and plan: SEE PLAN OF CARE LISTED BELOW Current Visit: Yes (6) Abnormal EKG Status: Acute Assessment and plan: SEE PLAN OF CARE LISTED BELOW Current Visit: Yes (7) COPD exacerbation Status: Acute Assessment and plan: SEE PLAN OF CARE LISTED BELOW Current Visit: Yes Cardiology - PN: Subj Interval history: PLACEMENT INTERVIEWER: DR. BARRIOS SUMMARY: 47BM admitted May 15, 2017 with chest pain, shortness of breath. In the emergency department he was intubated for respiratory distress. EKG was concerning for STEMI and he was taken emergently to the cardiac catheterization lab where Dr. Barrios performed LHC where no coronary obstructive disease noted. Echo: EF 60%, moderate LVH, grade 1 diastolic dysfunction, PAP 35 mmHg. Patient was significantly hypertensive on arrival the blood pressure 180/100, found to be positive for cocaine and marijuana. He has been treated for severe COPD, with severe bronchospasms, hypertensive urgency. Treated with steroids and bronchodilators. After approximately 2 days, he was weaned from the ventilator and transition to our telemetry unit. 2016: Blood pressure has improved with daily adjustments in his antihypertensive regimen. This morning, blood pressures averaging 150s/80s. Denies chest pain, heaviness, tightness. Patient continues to smoke and in fact leaves for smoke breaks frequently. Pulmonary has been by today and has added inhalers twice daily. He still has a significant amount of wheezing and shortness of breath. Patient has a history of noncompliance. He tells me he is basically homeless and usually does not use cocaine. He does have a girlfriend who is lying in the bed with him at this time and he reports she may be a resource at discharge for places to stay. He states he frequently smokes marijuana and did not know that his marijuana was laced with cocaine the day of admission. Greater than 30 minutes was spent today discussing the merits of tobacco cessation, cocaine cessation and marijuana cessation. He states he is interested in abstaining from cocaine. Today, will add Norvasc 5 mg (dose now) . Increase dose to 10 mg starting tomorrow morning. Will discontinue Coreg and monitor his wheezing. Hopefully, patient will be eligible for discharge tomorrow. Will further discuss with Dr. Alvarado and await additional recommendations. ASSESSMENT/PLAN: 1. ACUTE RESPIRATORY FAILURE - Most likely related to bronchospasm related to severe COPD. Now extubated. 2. ABNORMAL EKG - stable. Not acute [place] 3. HYPERTENSIVE URGENCY - blood pressure better controlled at this time. See above 4. COCAINE, MARIJUANA AND TOBACCO USE - greater than 5 minutes was spent today discussing the merits of cocaine, marijuana and tobacco cessation 5. COPD, SEVERE - appreciate Dr. Zuniga's assistance with management. Inhaler added today 6. NONCOMPLIANCE - reiterated the importance of compliance Exam (Progress Note) - Constitutional Vitals: Period Temp Pulse Resp BP Sys/Hernnadez Pulse Ox Last 24 Hr 97.3 F-98.0 F 72-96 16-20 123-155/77-89 92-100 Exam: General: [Appears well with no apparent distress.] [Pleasant and cooperative. ] [Appears comfortable.] HEENT: [PERRL, normocephalic, atraumatic. Mucous membranes moist. No jaundice noted. Conjunctiva moist and clear, sclerae anicteric] Neck: No JVD/HJR, no thyromegaly or lymphadenopathy noted. No carotid bruit appreciated Cardiac: [Regular rate and rhythm.] [No murmur rub or gallop.] Lungs: [End expiratory wheezes noted posteriorly and anteriorly. Not requiring oxygen Abdomen: Soft, bowel sounds normoactive. Nontender and nondistended. No abdominal bruit or thrill noted. No masses noted. Musculoskeletal: No fluid collection. Decreased range of motion is noted. Extremities: Right groin soft, free of hematoma or bruit no clubbing, cyanosis noted. [ No edema noted.] Upper extremity pulses 2+. Lower extremity pulses 2+ . Capillary refill less than 3 seconds. Skin: No unusual lesions or rashes. No skin breakdown appreciated. Neuro: Awake, alert and oriented 3. Moves all extremities well without hemiparesis or paralysis. No essential tremor is appreciated. Result/EKG - Labs CBC & BMP: 05/16/17 04:41 05/21/17 05:05 Lab Results: I have reviewed the past 24 hour labs Labs: Laboratory Results - last 24 hr 05/21/17 05:05 Sodium 138 Potassium 4.0 Chloride 101 Carbon Dioxide 30 Anion Gap 11.0 BUN 18 Creatinine 0.80 GFR Calculation 125 BUN/Creatinine Ratio 22.00 H Glucose 99 Calculated Osmolality 276.7 Calcium 9.0 - Diagnostic Findings Procedure: Chest x-ray: report reviewed by me - EKG EKG results: interpreted by me EKG shows: sinus rhythm Quality Measures - VTE Contraindication to Mechanical VTE Prophylaxis: Trauma to Legs Specialty Discharge - Follow Up or Referrals <Janneth Alvarado - Last Filed: 05/21/17 18:28> Cardiology - PN: Subj Interval history: I have personally interviewed and evaluated the patient, reviewed the chart and discussed medical decision-making with Practitioner Re. I have read this note and agree with her documentation here in. The patient continues to have significant rhonchi, wheezing and decreased air exchange on exam. Exam (Progress Note) - Constitutional Vitals: Period Temp Pulse Resp BP Sys/Hernandez Pulse Ox Last 24 Hr 96.3 F-98.0 F 72-103 16-20 136-155/77-89 92-100 Result/EKG - Labs CBC & BMP: 05/16/17 04:41 05/21/17 05:05 Labs: Laboratory Results - last 24 hr 05/21/17 05:05 Sodium 138 Potassium 4.0 Chloride 101 Carbon Dioxide 30 Anion Gap 11.0 BUN 18 Creatinine 0.80 GFR Calculation 125 BUN/Creatinine Ratio 22.00 H Glucose 99 Calculated Osmolality 276.7 Calcium 9.0
[2017-05-21] MEDS ORDERED: amLODIPine 5 MG TABLET PO ONE (11:28)
[2017-05-21] MEDS: BUDESONIDE/FORMOTEROL 160-4.5 INHALER 6 GM INH SCH ×2 (12:18→22:04)
[2017-05-21] MEDS: predniSONE 20 MG TABLET PO SCH (12:19)
[2017-05-22] MEDS: ALBUTEROL/IPRATROPIUM 3 ML NEB RESP TX SCH ×4 (00:58→19:36)
--- NOTE | 2017-05-22 08:28 | Pulmonology Progress Note ---
Pulmonary - PN: Subj Interval history: Patient is a 47-year-old black man that is a smoker and drinker and came in after using cocaine and was complaining of chest pain. He apparently was very agitated and restless and had to be intubated. He had very abnormal ABGs. He had a negative cardiac catheterization. He did have considerable wheezing and CO2 retention early on. He came off the ventilator okay and is done reasonably well. He stated he seems like he is getting a little better. He said he has been ambulating and is less short of breath. He was still coughs on but his wheezing is better. He seems to be tolerating medicines okay. Exam (Progress Note) - Constitutional Vitals: Period Temp Pulse Resp BP Sys/Hernandez Pulse Ox Last 24 Hr 96.3 F-98.7 F 68-103 16-20 126-161/76-99 96-100 Exam: General appearance: under weight, other (The patient is alert and moving around okay and in no distress. He looks much better today.) - Head Head exam: Present: normal inspection, normocephalic - Eye Eye exam: Present: EOMI. Absent: scleral icterus Pupils: Present: SKYLAR - ENT ENT exam: Present: normal exam, - Neck Neck exam: Absent: lymphadenopathy, thyromegaly - Respiratory Respiratory exam: Present: He is moving air fairly well and his lungs sound clear with much less wheezing. - Cardiovascular Cardiovascular exam: Present: regular rate and rhythm. Absent: gallop, systolic murmur - GI/Abdominal GI/Abdominal exam: Present: normal bowel sounds, soft. Absent: organomegaly, tenderness - Extremities Exam Extremities exam: Absent: calf tenderness, edema - Neurological Exam Neurological exam: Present: He is alert and comfortable and in no distress. He moves everything okay. - Psychiatric Psychiatric exam: Present: He is resting well and is quite calm now. - Skin Skin exam: Present: warm, dry Results - Labs CBC & BMP: 05/16/17 04:41 05/21/17 05:05 Assessment and Plan (1) Smoker Status: Acute Assessment and plan: The patient apparently smokes and uses drugs. He certainly needs to try to quit smoking Current Visit: Yes (2) COPD exacerbation Status: Acute Assessment and plan: The patient does wheeze frequently and is a smoker and has COPD. He is breathing comfortably but does need medications. We will continue with steroids and bronchodilator therapy. He can go home soon. Hopefully he will be able to get some medicines. Current Visit: Yes (3) Chest pain Status: Acute Assessment and plan: Patient came in with chest pain and was taken to the catheterization lab. His coronaries were apparently open. Current Visit: Yes (4) Respiratory distress Status: Resolved Assessment and plan: The patient is much better now and his respiratory distress has resolved. He will continue with bronchodilator therapy. He is breathing much better and should be able to go home at any time. Current Visit: Yes (5) Abnormal EKG Status: Acute Assessment and plan: Patient has an abnormal EKG probably from cocaine usage. He says he is going to quit cocaine usage. He will continue with some blood pressure medicines. Current Visit: Yes Specialty Discharge - Follow Up or Referrals
[2017-05-22] MEDS: FAMOTIDINE 20 MG/2 ML VIAL IV SCH (09:00)
[2017-05-22] MEDS: FAMOTIDINE 20 MG TABLET PO SCH (09:02)
[2017-05-22] MEDS: LISINOPRIL 20 MG TABLET PO SCH ×2 (09:02→21:52)
[2017-05-22] MEDS: amLODIPine 10 MG TABLET PO SCH (09:02)
[2017-05-22] MEDS: predniSONE 20 MG TABLET PO SCH (09:02)
[2017-05-22] MEDS: BUDESONIDE/FORMOTEROL 160-4.5 INHALER 6 GM INH SCH ×2 (09:03→21:59)
--- NOTE | 2017-05-22 16:39 | Cardiology Progress Note ---
<Cammy Trejo E - Last Filed: 05/22/17 17:01> Assessment and Plan - Time spent with patient Time spent with patient: Less than 30 minutes (1) Hypertension Status: Chronic Assessment and plan: See plan of care listed below. Current Visit: Yes (2) Noncompliance Status: Chronic Assessment and plan: See plan of care listed below. Current Visit: Yes (3) Cocaine abuse Status: Acute Assessment and plan: See plan of care listed below. Current Visit: Yes (4) Marijuana abuse Status: Chronic Assessment and plan: See plan of care listed below. Current Visit: Yes (5) Respiratory distress Status: Resolved Assessment and plan: See plan of care listed below. Current Visit: Yes (6) Abnormal EKG Status: Acute Assessment and plan: See plan of care listed below. Current Visit: Yes (7) COPD exacerbation Status: Acute Assessment and plan: See plan of care listed below. Current Visit: Yes Cardiology - PN: Subj Interval history: SUBSYSTEMS ENGINEER: DR. BARRIOS SUMMARY: 47BM admitted May 15, 2017 with chest pain, shortness of breath. In the emergency department he was intubated for respiratory distress. EKG was concerning for STEMI and he was taken emergently to the cardiac catheterization lab where Dr. Barrios performed LHC where no coronary obstructive disease noted. Echo: EF 60%, moderate LVH, grade 1 diastolic dysfunction, PAP 35 mmHg. Patient was significantly hypertensive on arrival the blood pressure 180/100, found to be positive for cocaine and marijuana. He has been treated for severe COPD, with severe bronchospasms, hypertensive urgency. Treated with steroids and bronchodilators. After approximately 2 days, he was weaned from the ventilator and transition to our telemetry unit where we are continuing to treat his pulmonary issues. He continues to have rhonchi and wheezing. Patient has a history of noncompliance and has been counseled on numerous occasions for extended periods of time regarding the importance of abstaining from tobacco products and other illicit substances. 2016: Blood pressure has improved with daily adjustments in his antihypertensive regimen. Continue Lisinopril 20mg po BID and Norvasc 10mg po daily. Denies chest pain, heaviness, tightness. Patient has continued to smoke but now reports he is quitting. He still has a significant amount of wheezing, rhonchi, and shortness of breath. Oxygen saturations have been >95% on 2L O2 via NBP. Will further discuss with Dr. Alvarado and await additional recommendations. ASSESSMENT/PLAN: 1. ACUTE RESPIRATORY FAILURE - Most likely related to bronchospasm related to severe COPD. Now extubated and being followed by pulmonology. He has been started on inhalers twice daily. 2. ABNORMAL EKG - stable. Not acute [place] 3. HYPERTENSIVE URGENCY - blood pressure better controlled at this time. See above 4. COCAINE, MARIJUANA AND TOBACCO USE - greater than 5 minutes was spent today discussing the merits of cocaine, marijuana and tobacco cessation 5. COPD, SEVERE - appreciate Dr. Zuniga's assistance with management. Inhaler added. 6. NONCOMPLIANCE - reiterated the importance of compliance Exam (Progress Note) - Constitutional Vitals: Period Temp Pulse Resp BP Sys/Hernandez Pulse Ox Last 24 Hr 97.2 F-98.7 F 68-95 16-20 110-149/71-88 95-100 Exam: General appearance: Appears well. Pleasant and cooperative. Overweight, no acute distress. Head exam: Present: normal inspection, normocephalic, atraumatic. Absent: hematoma, laceration Eye exam: Present: EOMI. Absent: conjunctival injection, nystagmus, periorbital swelling, scleral icterus, laceration to eyelids, jaundice Pupils: Present: PERRL. Absent: constricted, dilated, fixed, irregular, unequal ENT exam: Present: normal exam, normal external ear exam, mucous membranes moist. Neck exam: Present: normal inspection, midline trachea. Absent: masses, lymphadenopathy, tenderness, thyromegaly, carotid bruit Respiratory exam: Present: End expiratory wheezes noted anteriorly and posteriorly along with scattered rhonchi. Absent: accessory muscle use, chest wall tenderness Cardiovascular exam: Present: regular rate and rhythm. Absent: gallop, JVD, rubs, murmur GI/Abdominal exam: Present: normal bowel sounds, soft. Absent: distended, firm , hernia, mass, tenderness. Extremities exam: Present: Normal Gait, No Clubbing, No Cyanosis, Upper Extr. Pulses 2+, Lower Extr. Pulses 2+, No edema. Capillary refill less than 3 seconds. Musculoskeletal: Present: No Fluid Collection, No Pain, Normal Range of Motion Back exam: Present: normal inspection. Absent: muscle spasm, vertebral tenderness Neurological exam: Present: awake, alert, oriented X3, Moves all extremities well without hemiparesis or paralysis. Grossly intact without resting or essential tremor Psychiatric exam: Present: normal affect, normal mood Skin exam: Present: normal color, warm, dry, intact. Absent: cyanosis, diaphoretic, rash, urticaria Result/EKG - Labs CBC & BMP: 05/16/17 04:41 05/21/17 05:05 Lab Results: I have reviewed the past 24 hour labs - EKG EKG results: interpreted by me, sinus rhythm Quality Measures - VTE Contraindication to Mechanical VTE Prophylaxis: Trauma to Legs Specialty Discharge - Follow Up or Referrals <Janneth Alvarado - Last Filed: 05/22/17 18:12> Cardiology - PN: Subj Interval history: I have personally interviewed and evaluated the patient, reviewed the chart and discussed medical decision-making with practitioner Neil. I have read this note and agree with her documentation here in. He continues to have significant wheezing and decreased air movement throughout his lungs putting him at high risk of recurrent respiratory failure without appropriate treatment. We will continue current therapy and appreciate pulmonology's assistance. Exam (Progress Note) - Constitutional Vitals: Period Temp Pulse Resp BP Sys/Hernandez Pulse Ox Last 24 Hr 97.2 F-98.7 F 68-95 16-20 110-149/71-88 95-100 Result/EKG - Labs CBC & BMP: 05/16/17 04:41 05/21/17 05:05
[2017-05-23] MEDS: ALBUTEROL/IPRATROPIUM 3 ML NEB RESP TX SCH ×3 (01:07→12:40)
[2017-05-23 06:40] LABS: Basophils % 0.1 % (0.0-0.8); Eosinophils # 0.1 10*3/uL (0.0-0.87); Eosinophils % 0.6 % (0.00-10.9); Hematocrit 44.5 VOL% (42.0-52.0); Hemoglobin 14.8 GM/DL (14.0-18.0); Immature Granulocytes % 0.9 %; Immature Granulocytes Absolute 0.13 #; Lymphocytes # 4.6 10*3/uL (1.4-4.0); Lymphocytes % 30.2 % (21.2-54.2); Mean Corpuscular HGB Conc 33.3 GM/DL (32-36); Mean Corpuscular Hemoglobin 28 PG (27-34); Mean Corpuscular Volume 83.3 FL (87-102); Mean Platelet Volume 9.2 FL (9.6-12.0); Monocytes # 1.5 10*3/uL (0.11-0.8); Monocytes % 9.8 % (1.7-12.7); Neutrophils # 8.9 10*3/uL (1.4-7.4); Neutrophils % 58.4 % (38.7-73.9); Platelet Count 322 T/CUMM (130-400); Red Blood Count 5.34 MC/CUMM (3.8-5.5); Red Cell Distribution Width 14.4 % (9.3-17.3); White Blood Count 15.2 T/CUMM (4-12)
[2017-05-23 07:14] LABS: Calcium 9.1 MG/DL (8.5-10.1); Magnesium 2.9 MG/DL (1.8-2.4); Osmolality,Calculated 273.8 MOS/KG (273-304); Potassium 4.5 MMOL/L (3.5-5.1)
[2017-05-23] MEDS: LISINOPRIL 20 MG TABLET PO SCH (08:15)
[2017-05-23] MEDS: amLODIPine 10 MG TABLET PO SCH (08:15)
[2017-05-23] MEDS: predniSONE 20 MG TABLET PO SCH (08:15)
[2017-05-23] MEDS: FAMOTIDINE 20 MG TABLET PO SCH (08:15)
[2017-05-23] MEDS: BUDESONIDE/FORMOTEROL 160-4.5 INHALER 6 GM INH SCH (08:17)
--- NOTE | 2017-05-23 08:37 | Pulmonology Progress Note ---
Pulmonary - PN: Subj Interval history: Patient is a 47-year-old black man that is a smoker and drinker and came in after using cocaine and was complaining of chest pain. He apparently was very agitated and restless and had to be intubated. He had very abnormal ABGs. He had a negative cardiac catheterization. He did have considerable wheezing and CO2 retention early on. He came off the ventilator okay and is done reasonably well. The patient still coughs and wheezes some but is much better. He is ambulating without any problems. He does want to try nicotine patch. I am not sure he can buy his medicines. Exam (Progress Note) - Constitutional Vitals: Period Temp Pulse Resp BP Sys/Hernandez Pulse Ox Last 24 Hr 97.2 F-98.2 F 70-99 16-20 110-154/71-88 95-99 Exam: General appearance: under weight, other (The patient is alert and moving around okay and in no distress. He looks quite comfortable today.) - Head Head exam: Present: normal inspection, normocephalic - Eye Eye exam: Present: EOMI. Absent: scleral icterus Pupils: Present: SKYLAR - ENT ENT exam: Present: normal exam, - Neck Neck exam: Absent: lymphadenopathy, thyromegaly - Respiratory Respiratory exam: Present: He is moving air fairly well and his lungs sound clear with much less wheezing. He still has some rhonchi but has good air movement. - Cardiovascular Cardiovascular exam: Present: regular rate and rhythm. Absent: gallop, systolic murmur - GI/Abdominal GI/Abdominal exam: Present: normal bowel sounds, soft. Absent: organomegaly, tenderness - Extremities Exam Extremities exam: Absent: calf tenderness, edema - Neurological Exam Neurological exam: Present: He is alert and comfortable and in no distress. He moves everything okay. - Psychiatric Psychiatric exam: Present: He is resting well and is quite calm now. - Skin Skin exam: Present: warm, dry Results - Labs CBC & BMP: 05/23/17 06:23 05/23/17 06:23 Assessment and Plan (1) Smoker Status: Acute Assessment and plan: The patient apparently smokes and uses drugs. He certainly needs to try to quit smoking. Will try nicotine patch. Current Visit: Yes (2) COPD exacerbation Status: Acute Assessment and plan: The patient does wheeze frequently and is a smoker and has COPD. He is breathing comfortably but does need medications. We will continue with steroids and bronchodilator therapy. He can go home soon. Hopefully he will be able to get some medicines. His compliance will be a definite problem. Current Visit: Yes (3) Chest pain Status: Acute Assessment and plan: Patient came in with chest pain and was taken to the catheterization lab. His coronaries were apparently open. Current Visit: Yes (4) Respiratory distress Status: Resolved Assessment and plan: The patient is much better now and his respiratory distress has resolved. He will continue with bronchodilator therapy. He is breathing much better and should be able to go home at any time. Current Visit: Yes (5) Abnormal EKG Status: Acute Assessment and plan: Patient has an abnormal EKG probably from cocaine usage. He says he is going to quit cocaine usage. He will continue with some blood pressure medicines. Current Visit: Yes Specialty Discharge - Follow Up or Referrals
[2017-05-23] MEDS ORDERED: NICOTINE 21 MG/24 HR PATCH TRANSDERM SCH (09:00)
--- NOTE | 2017-05-23 12:05 | Discharge Summary ---
Hospital Course - Hospital Course Hospital Course: I have personally interviewed and examined the patient, reviewed the chart and discussed medical decision making with PRINCIPAL ADMINISTRATIVE CLERK Claudette Grimaldo. I have read this note and agree with the findings documented herein. ASTRONOMY DEPARTMENT CHAIR: DR. BARRIOS SUMMARY: 47BM admitted May 15, 2017 with chest pain, shortness of breath. In the emergency department he was intubated for respiratory distress. EKG was concerning for STEMI and he was taken emergently to the cardiac catheterization lab where Dr. Barrios performed LHC where no coronary obstructive disease noted. Echo: EF 60%, moderate LVH, grade 1 diastolic dysfunction, PAP 35 mmHg. Patient was significantly hypertensive on arrival the blood pressure 180/100, found to be positive for cocaine and marijuana. He has been treated for COPD with severe bronchospasms, hypertensive urgency. Treated with steroids and bronchodilators. After approximately 2 days, he was weaned from the ventilator and transitioned to our telemetry unit where he stayed until discharge. Dr. Kevin Zuniga, therapist speech, was consulted. Patient was diagnosed with severe COPD. He was treated with steroids and inhalers. Patient had significant bronchospasms and wheezing throughout hospital stay. However, this was improved though persists the morning of discharge. Patient has been ambulating throughout the hospital and outside without significant shortness of breath however. Medication adjustments ensued for better blood pressure control. His beta-ankur was discontinued in an effort to better control/ decrease his wheezing. Not certain if the discontinuation of the beta-ankur improved the wheezing but we are avoiding due to the severity of his COPD and bronchospasms, as well as his cocaine use. Patient has limited financial capabilities. He has applied for disability. He verbalizes understanding regarding the need for nicotine, marijuana and cocaine cessation. He is interested in nicotine patches at discharge to help with his cravings for cigarettes. I will send him a handwritten prescription at discharge. Prior to d/c, I smelled nicotine on his clothes and inquired about his resumption of nicotine- he reported being "stressed". I emphasized the risk of severe and acute bronchospasm with nictone use and his pulmonary condition. Patient will be given a follow-up appointment with Dr. Barrios. Otherwise, he has no active cardiac conditions. Also, he will be given a follow-up appointment with Dr. Kevin Zuniga. I have discussed with Dr. Zuniga and will send the patient home on Prednisone (weaning schedule) and generic Albuterol inhaler prescription as this seems to be the least expensive of the inhalers. Discharge medications include the following: Lisinopril 20 mg orally twice daily Norvasc 10 mg orally daily Prednisone 40 mg p.o. daily 3 days, Prednisone 30 mg p.o. daily 3 days, Prednisone 20 mg p.o. daily 3 days, Prednisone 10 mg p.o. daily 3 days. Patient is also being given a handwritten prescription for generic albuterol inhaler 1 puff twice daily. - Time spent with patient Time with patient DS: Greater than 30 minutes Time spent discussing smoking cessation with patient: 3 to 10 minutes Diagnosis - Discharge Diagnosis (1) Hypertension Status: Chronic (2) Noncompliance Status: Chronic (3) Cocaine abuse Status: Acute (4) Marijuana abuse Status: Chronic (5) Respiratory distress Status: Resolved (6) Abnormal EKG Status: Acute (7) COPD exacerbation Status: Acute Specialty Discharge - Follow Up or Referrals Follow up with: Kevin Zuniga MD [Physician] - 2 Weeks (06/10/2017 10:30 AM) Pierce Barrios MD [Physician] - 06/19/17 10:20 am ( ) Discharge Plan - Discharge Data Disposition: Disch To Home/Self Care Condition at Discharge: Stable Discharge Diet: heart healthy Activity: other (Post cath expectations) Hygiene: other (Post Dictation) Weight Bearing at Discharge: other (Post cath expected) Driving: other (Post cath expectations) Contact your physician if you experience:: fever over 101, Difficulty voiding, Redness or swelling, Nausea/Vomiting, Shortness of breath, Bleeding, pain uncontrolled by pain medications - Discharge Medications New predniSONE TAB [PredniSONE] 40 mg PO DAILY #12 tablet amLODIPine [Norvasc] 10 mg PO DAILY #30 tablet Lisinopril [Prinivil] 20 mg PO BID #60 tablet - Follow Up or Referral Follow Up: Kevin Zuniga MD [Physician] - 2 Weeks (06/10/2017 10:30 AM) Pierce Barrios MD [Physician] - 06/19/17 10:20 am ( ) - Forms/Instructions Instructions: Coronary Artery Disease (GEN), How to Stop Smoking (DC), Heart Healthy Diet (GEN), Chronic Obstructive Pulmonary Disease (GEN), Cigarette Smoking and Your Health, Icu Manager (GEN), COPD, Icu Manager (GEN) Additional Discharge Instructions: See attached handwritten Rx to give patient. (Albuteral inhaler and Nicotene patch prescriptions) Exam - Constitutional Vitals: Period Temp Pulse Resp BP Sys/Hernandez Pulse Ox Last 24 Hr 97.2 F-98.2 F 70-97 16-20 115-134/70-94 97-99 Exam: General: [Appears well with no apparent distress.] [Pleasant and cooperative. ] [Appears comfortable.] HEENT: [PERRL, normocephalic, atraumatic. Mucous membranes moist. No jaundice noted. Conjunctiva moist and clear, sclerae anicteric] Neck: No JVD/HJR, no thyromegaly or lymphadenopathy noted. No carotid bruit appreciated Cardiac: [Regular rate and rhythm.] [No murmur rub or gallop.] Lungs: [End expiratory wheezes noted posteriorly, improved. Not requiring oxygen Abdomen: Soft, bowel sounds normoactive. Nontender and nondistended. No abdominal bruit or thrill noted. No masses noted. Musculoskeletal: No fluid collection. Decreased range of motion is noted. Extremities: Right groin soft, free of hematoma or bruit no clubbing, cyanosis noted. [ No edema noted.] Upper extremity pulses 2+. Lower extremity pulses 2+ . Capillary refill less than 3 seconds. Skin: No unusual lesions or rashes. No skin breakdown appreciated. Neuro: Awake, alert and oriented 3. Moves all extremities well without hemiparesis or paralysis. No essential tremor is appreciated. Discharge Results Labs on day of discharge: Labs from last 24 hours 05/23/17 05/23/17 06:23 06:23 WBC 15.2 H RBC 5.34 Hgb 14.8 Hct 44.5 MCV 83.3 L MCH 28 MCHC 33.3 RDW 14.4 Plt Count 322 MPV 9.2 L Neut % (Auto) 58.4 Lymph % (Auto) 30.2 Waller % (Auto) 9.8 Eos % (Auto) 0.6 Baso % (Auto) 0.1 Neut # (Auto) 8.9 H Lymph # (Auto) 4.6 H Waller # (Auto) 1.5 H Eos # (Auto) 0.1 Baso # (Auto) 0.0 Immature Gran % 0.9 Nucleated RBC % 0.0 Immature Gran # 0.13 Nucleated RBCs # 0.00 Immature Plt Fraction 0.0 Sodium 137 Potassium 4.5 Chloride 98 Carbon Dioxide 35 H Anion Gap 8.5 BUN 19 H Creatinine 1.00 GFR Calculation 107 BUN/Creatinine Ratio 19.00 Glucose 85 Calculated Osmolality 273.8 Calcium 9.1 Magnesium 2.9 H - Imaging and Cardiology Cardiology Procedure: report reviewed by me DS: Provider Date of admission: 05/15/17 08:10 Attending physician on admission: Pierce Barrios MD Consults: 05/15/17 08:10 Consult to Cardiac Rehabilitation [CONS] Routine Reason for Cardiac Rehabilitation: Risk Factor Modification Other Consult Comment: Evaluate and recommend 05/15/17 08:12 Consult to Physician [CONS] Routine Comment: ventilator sr. director product management Provider: [facility] Provider Notified: Yes Person Notified: Dr. Zuniga Date Notified: 05/15/17 Consult Notification Comment: Dr Zuniga has already seen patient prior to arrival 05/23/17 09:46 Consult to Case Mgmt/Social Srvs [CONS] Routine Reason for Case Mgmt/Social Srvs: Discharge Planning Consult Comment: VERIFY LIVING SITUATION AND ABILITY TO AFFORD MEDS. Discharging clinician: Claudette Grimaldo NP Expected date of discharge: 05/23/17
[2017-05-23 17:03] VITALS: BP 121/94
== END 2017-05-23 17:55 | disposition home or self-care (01) | DRG 208 ==
LOC: EDBD → EDUNIT# → N.ED 07:02 → N.CL 07:20 → N.ICU 08:10 → N.TELEN 05-17 15:47
PROVIDERS: ADMIT Internal Medicine Cardiovascular Disease; ATTEND Internal Medicine Cardiovascular Disease
PROC: CLCCHCL (ICD-10-PCS; 2017-05-15 08:45)

== ENCOUNTER 2018-11-03 18:18 | Inpatient (IN) ==
[2018-11-03] MEDS ORDERED: ALBUTEROL/IPRATROPIUM 3 ML NEB RESP TX STA (18:59)
[2018-11-03] MEDS ORDERED: methylPREDNISolone SOD SUC 125 MG/2 ML VIAL IV STA (19:19)
[2018-11-03] MEDS ORDERED: SODIUM CHLORIDE 0.9% 500 ML IV STA (19:19)
[2018-11-03] MEDS ORDERED: ALBUTEROL 2.5 MG/3 ML NEB RESP TX SCH (19:30)
[2018-11-03 19:49] LABS: ABG Base Excess 1.4 MMOL/L (-2.5-2.5); ABG HCO3 25.6 MMOL/L (20-26); ABG Oxygen Saturation 96.4 % (95-100); ABG PCO2 43.4 MM HG (35-48); ABG PH 7.396 (7.35-7.45); ABG PO2 83.8 MM HG (80-95); Allen Test Positive
[2018-11-03 20:09] LABS: Basophils # 0.1 10*3/uL (0.0-0.2); Basophils % 0.5 % (0.0-0.8); Eosinophils # 0.2 10*3/uL (0.0-0.87); Eosinophils % 1.8 % (0.00-10.9); Hematocrit 42.1 VOL% (42.0-52.0); Hemoglobin 13.7 GM/DL (14.0-18.0); Immature Granulocytes % 0.5 %; Immature Granulocytes Absolute 0.06 #; Lymphocytes # 1.7 10*3/uL (1.4-4.0); Lymphocytes % 13.1 % (21.2-54.2); Mean Corpuscular HGB Conc 32.5 GM/DL (32-36); Mean Corpuscular Hemoglobin 26 PG (27-34); Mean Corpuscular Volume 80.8 FL (87-102); Mean Platelet Volume 9.2 FL (9.6-12.0); Monocytes # 0.8 10*3/uL (0.11-0.8); Monocytes % 6.5 % (1.7-12.7); Neutrophils # 9.8 10*3/uL (1.4-7.4); Neutrophils % 77.6 % (38.7-73.9); Platelet Count 260 T/CUMM (130-400); Red Blood Count 5.21 MC/CUMM (3.8-5.5); Red Cell Distribution Width 15.1 % (9.3-17.3); White Blood Count 12.6 T/CUMM (4-12)
[2018-11-03 20:27] LABS: Bilirubin,Total 0.6 MG/DL (0.2-1.0); Calcium 8.8 MG/DL (8.5-10.1); Osmolality,Calculated 272.8 MOS/KG (273-304); Potassium 3.5 MMOL/L (3.5-5.1); Total Protein 7.5 G/DL (6.4-8.3)
[2018-11-03 20:27] LABS: INR 0.9; PT Patient Result 9.9 SECS
[2018-11-03] MEDS ORDERED: cefTRIAXone 1,000 MG in SODIUM CHLORIDE 0.9% 100 ML IV STA (21:16)
[2018-11-03] MEDS ORDERED: ALBUTEROL 2.5 MG/3 ML NEB RESP TX PRN (21:47)
[2018-11-03] MEDS ORDERED: diphenhydrAMINE CAP 25 MG CAPSULE PO PRN (21:47)
[2018-11-03] MEDS ORDERED: ONDANSETRON 4 MG/2 ML VIAL IV PRN (21:47)
[2018-11-03] MEDS ORDERED: ACETAMINOPHEN 500 MG TABLET PO PRN (21:47)
[2018-11-03] MEDS ORDERED: NICOTINE 21 MG/24 HR PATCH TRANSDERM PRN (21:47)
[2018-11-03] MEDS ORDERED: BISACODYL 5 MG TABLET PO PRN (21:47)
[2018-11-03] MEDS ORDERED: MORPHINE 4 MG/1 ML VIAL IV PRN (21:47)
[2018-11-03 23:12] LABS: Apearance,Urine CLEAR (Clear); Bilirubin,Urine Negative (Negative); Blood, Urine Negative (Negative); Glucose,Urine (UA) Negative (Negative); Ketones,Urine Negative (Negative); Mucus,Urine Occasional /LPF (Occasional); Nitrite,Urine Negative (Negative); Protein,Urine Negative; RBC,Urine 1 /HPF (0-4); Squamous Epithelial Cell,Urine Occasional /HPF (0-10); Urine Color Yellow (Yellow); Urine Specific Gravity 1.015 (1.001-1.035); Urine Urobilinogen < 2.0 EU/DL (0.2-1.0); WBC,Urine <1 /HPF (0-6)
[2018-11-03] MEDS: SODIUM CHLORIDE 0.9% 1,000 ML IV SCH (23:28)
[2018-11-03] MEDS: ALBUTEROL/IPRATROPIUM 3 ML NEB RESP TX SCH (23:38)
[2018-11-04 02:53] LABS: Basophils % 0.2 % (0.0-0.8); Hematocrit 39.1 VOL% (42.0-52.0); Hemoglobin 12.5 GM/DL (14.0-18.0); Immature Granulocytes % 0.7 %; Immature Granulocytes Absolute 0.06 #; Lymphocytes # 0.2 10*3/uL (1.4-4.0); Lymphocytes % 2.2 % (21.2-54.2); Mean Corpuscular Hemoglobin 26 PG (27-34); Mean Platelet Volume 9.6 FL (9.6-12.0); Monocytes # 0.1 10*3/uL (0.11-0.8); Monocytes % 1.2 % (1.7-12.7); Neutrophils # 8.8 10*3/uL (1.4-7.4); Neutrophils % 95.7 % (38.7-73.9); Platelet Count 248 T/CUMM (130-400); Red Blood Count 4.83 MC/CUMM (3.8-5.5); Red Cell Distribution Width 15.4 % (9.3-17.3); White Blood Count 9.2 T/CUMM (4-12)
[2018-11-04 04:00] LABS: Band Neutrophils 2 % (0-10); Lymphocytes 1 % (20-55); Segmented Neutrophils 95 % (50-85); Total Cells Counted 100
[2018-11-04 04:01] LABS: Anisocytosis 1+; Hypochromasia 1+
[2018-11-04 04:02] LABS: Platelet Estimate Adequate
[2018-11-04] MEDS: ALBUTEROL/IPRATROPIUM 3 ML NEB RESP TX SCH ×6 (04:05→23:40)
[2018-11-04] MEDS: methylPREDNISolone SOD SUC 40 MG/1 ML VIAL IV SCH ×3 (04:53→20:54)
[2018-11-04] MEDS: guaiFENesin/DM ER 600-30 MG TABLET PO PRN ×2 (09:07→18:39)
[2018-11-04] MEDS: PANTOPRAZOLE 40 MG TABLET PO SCH (09:07)
[2018-11-04] MEDS: SODIUM CHLORIDE 0.9% 1,000 ML IV SCH ×2 (09:09→18:39)
[2018-11-04] MEDS: ZALEPLON 5 MG CAPSULE PO PRN (20:54)
[2018-11-05] MEDS: cefTRIAXone 1,000 MG in SYRINGE 1 EACH IV SCH ×2 (00:57→23:47)
[2018-11-05] MEDS: ALBUTEROL/IPRATROPIUM 3 ML NEB RESP TX SCH ×6 (03:50→23:45)
[2018-11-05] MEDS: methylPREDNISolone SOD SUC 40 MG/1 ML VIAL IV SCH ×3 (04:31→20:55)
[2018-11-05] MEDS: SODIUM CHLORIDE 0.9% 1,000 ML IV SCH (04:32)
[2018-11-05 07:06] LABS: Basophils % 0.1 % (0.0-0.8); Hematocrit 37.6 VOL% (42.0-52.0); Hemoglobin 12.1 GM/DL (14.0-18.0); Immature Granulocytes % 0.7 %; Immature Granulocytes Absolute 0.09 #; Lymphocytes # 0.9 10*3/uL (1.4-4.0); Lymphocytes % 7.1 % (21.2-54.2); Mean Corpuscular HGB Conc 32.2 GM/DL (32-36); Mean Corpuscular Hemoglobin 26 PG (27-34); Mean Corpuscular Volume 80.7 FL (87-102); Mean Platelet Volume 9.4 FL (9.6-12.0); Monocytes # 0.8 10*3/uL (0.11-0.8); Neutrophils # 11.1 10*3/uL (1.4-7.4); Neutrophils % 86.1 % (38.7-73.9); Platelet Count 248 T/CUMM (130-400); Red Blood Count 4.66 MC/CUMM (3.8-5.5); Red Cell Distribution Width 15.8 % (9.3-17.3); White Blood Count 12.9 T/CUMM (4-12)
[2018-11-05 07:21] LABS: Calcium 8.2 MG/DL (8.5-10.1); Osmolality,Calculated 278.4 MOS/KG (273-304); Potassium 4.1 MMOL/L (3.5-5.1)
[2018-11-05] MEDS ORDERED: NIFEdipine 10 MG CAPSULE PO PRN (08:18)
[2018-11-05] MEDS: guaiFENesin/DM ER 600-30 MG TABLET PO PRN (08:25)
[2018-11-05] MEDS: amLODIPine 5 MG TABLET PO SCH (08:25)
[2018-11-05] MEDS: PANTOPRAZOLE 40 MG TABLET PO SCH (08:25)
[2018-11-05] MEDS: OSELTAMIVIR 75 MG CAPSULE PO SCH ×2 (10:26→20:55)
[2018-11-05] MEDS: AZITHROMYCIN 250 MG TABLET PO SCH (10:26)
[2018-11-05] MEDS: ZALEPLON 5 MG CAPSULE PO PRN (20:55)
[2018-11-06] MEDS: ALBUTEROL/IPRATROPIUM 3 ML NEB RESP TX SCH ×6 (03:05→23:55)
[2018-11-06] MEDS: methylPREDNISolone SOD SUC 40 MG/1 ML VIAL IV SCH ×3 (04:08→20:40)
[2018-11-06] MEDS: OSELTAMIVIR 75 MG CAPSULE PO SCH ×2 (08:41→20:39)
[2018-11-06] MEDS: amLODIPine 5 MG TABLET PO SCH (08:42)
[2018-11-06] MEDS: AZITHROMYCIN 250 MG TABLET PO SCH (08:42)
[2018-11-06] MEDS: PANTOPRAZOLE 40 MG TABLET PO SCH (08:42)
[2018-11-06] MEDS: cefTRIAXone 1,000 MG in SYRINGE 1 EACH IV SCH ×2 (20:39→22:12)
[2018-11-06] MEDS: ZALEPLON 5 MG CAPSULE PO PRN (20:40)
[2018-11-07] MEDS: ALBUTEROL/IPRATROPIUM 3 ML NEB RESP TX SCH ×6 (03:46→23:00)
[2018-11-07] MEDS: methylPREDNISolone SOD SUC 40 MG/1 ML VIAL IV SCH ×3 (04:30→22:57)
[2018-11-07 06:10] LABS: Basophils % 0.1 % (0.0-0.8); Hematocrit 42.1 VOL% (42.0-52.0); Hemoglobin 13.8 GM/DL (14.0-18.0); Immature Granulocytes % 1.4 %; Immature Granulocytes Absolute 0.16 #; Lymphocytes # 1.5 10*3/uL (1.4-4.0); Mean Corpuscular HGB Conc 32.8 GM/DL (32-36); Mean Corpuscular Hemoglobin 26 PG (27-34); Mean Corpuscular Volume 80.5 FL (87-102); Mean Platelet Volume 9.4 FL (9.6-12.0); Monocytes # 0.6 10*3/uL (0.11-0.8); Neutrophils # 9.3 10*3/uL (1.4-7.4); Neutrophils % 80.5 % (38.7-73.9); Platelet Count 272 T/CUMM (130-400); Red Blood Count 5.23 MC/CUMM (3.8-5.5); Red Cell Distribution Width 15.4 % (9.3-17.3); White Blood Count 11.5 T/CUMM (4-12)
[2018-11-07 06:37] LABS: Calcium 8.6 MG/DL (8.5-10.1); Osmolality,Calculated 276.7 MOS/KG (273-304); Potassium 3.7 MMOL/L (3.5-5.1)
[2018-11-07] MEDS: AZITHROMYCIN 250 MG TABLET PO SCH (08:17)
[2018-11-07] MEDS: amLODIPine 5 MG TABLET PO SCH (08:18)
[2018-11-07] MEDS: PANTOPRAZOLE 40 MG TABLET PO SCH (08:18)
[2018-11-07] MEDS: OSELTAMIVIR 75 MG CAPSULE PO SCH ×2 (08:18→21:42)
[2018-11-07] MEDS: ZALEPLON 5 MG CAPSULE PO PRN (21:42)
[2018-11-07] MEDS: cefTRIAXone 1,000 MG in SYRINGE 1 EACH IV SCH (22:57)
[2018-11-08] MEDS: ALBUTEROL/IPRATROPIUM 3 ML NEB RESP TX SCH ×3 (03:30→11:18)
[2018-11-08] MEDS: AZITHROMYCIN 250 MG TABLET PO SCH (08:17)
[2018-11-08] MEDS: amLODIPine 5 MG TABLET PO SCH (08:19)
[2018-11-08] MEDS: OSELTAMIVIR 75 MG CAPSULE PO SCH (08:19)
[2018-11-08] MEDS: PANTOPRAZOLE 40 MG TABLET PO SCH (08:20)
[2018-11-08] MEDS: methylPREDNISolone SOD SUC 40 MG/1 ML VIAL IV SCH (10:42)
[2018-11-08 12:11] VITALS: BP 134/89
== END 2018-11-08 13:10 | disposition home or self-care (01) | DRG 192 ==
LOC: N.ED 18:18 → SUATTDRO 21:47 → N.EDINP 21:47 → N.5E 22:38
PROVIDERS: ADMIT Internal Medicine; ATTEND Internal Medicine

== ENCOUNTER 2019-01-12 06:29 | Inpatient (IN) ==
[2019-01-12 11:08] LABS: Basophils # 0.1 10*3/uL (0.0-0.2); Basophils % 0.4 % (0.0-0.8); Eosinophils # 0.2 10*3/uL (0.0-0.87); Eosinophils % 1.2 % (0.00-10.9); Hematocrit 44.8 VOL% (42.0-52.0); Hemoglobin 14.1 GM/DL (14.0-18.0); Immature Granulocytes % 0.5 %; Immature Granulocytes Absolute 0.07 #; Lymphocytes # 2.5 10*3/uL (1.4-4.0); Mean Corpuscular HGB Conc 31.5 GM/DL (32-36); Mean Corpuscular Volume 84.7 FL (87-102); Monocytes % 6.8 % (1.7-12.7); Neutrophils % 72.1 % (38.7-73.9); Platelet Count 213 T/CUMM (130-400); Red Blood Count 5.29 MC/CUMM (3.8-5.5); Red Cell Distribution Width 15.2 % (9.3-17.3)
[2019-01-12 11:48] LABS: Albumin 3.9 G/DL (3.4-5.0); Bilirubin,Total 0.6 MG/DL (0.2-1.0); Calcium 8.6 MG/DL (8.5-10.1); Osmolality,Calculated 279.3 MOS/KG (273-304); Total Protein 7.1 G/DL (6.4-8.3)
[2019-01-12] MEDS ORDERED: CLINDAMYCIN INJ 600 MG in PREMIX 1 EACH IV STA (13:40)
[2019-01-12] MEDS ORDERED: CLINDAMYCIN INJ 50 ML IV ONE (13:44)
[2019-01-12] MEDS ORDERED: ONDANSETRON 4 MG/2 ML VIAL IV PRN (14:21)
[2019-01-12] MEDS ORDERED: MORPHINE 4 MG/1 ML VIAL IV PRN (14:21)
[2019-01-12] MEDS ORDERED: MORPHINE 4 MG/1 ML VIAL IV STA (17:34)
[2019-01-12] MEDS: SODIUM CHLORIDE 0.9% 1,000 ML IV SCH (18:08)
[2019-01-12] MEDS: NICOTINE 7 MG/24 HR PATCH TRANSDERM SCH (18:13)
[2019-01-12] MEDS: THIAMINE 100 MG TABLET PO SCH (18:14)
[2019-01-12] MEDS ORDERED: ACETAMINOPHEN 325 MG TABLET PO PRN (18:38)
[2019-01-12] MEDS: LISINOPRIL 20 MG TABLET PO SCH (18:56)
[2019-01-12] MEDS: amLODIPine 10 MG TABLET PO SCH (18:56)
[2019-01-12] MEDS: FOLIC ACID 1 MG TABLET PO SCH (20:52)
[2019-01-12] MEDS: CLINDAMYCIN INJ 600 MG in PREMIX 1 EACH IV SCH (22:04)
[2019-01-13] MEDS: CLINDAMYCIN INJ 600 MG in PREMIX 1 EACH IV SCH ×3 (05:21→21:50)
[2019-01-13] MEDS: SODIUM CHLORIDE 0.9% 1,000 ML IV SCH ×2 (05:50→18:09)
[2019-01-13 05:51] LABS: Basophils % 0.3 % (0.0-0.8); Eosinophils # 0.3 10*3/uL (0.0-0.87); Eosinophils % 1.9 % (0.00-10.9); Hematocrit 40.5 VOL% (42.0-52.0); Immature Granulocytes % 0.5 %; Immature Granulocytes Absolute 0.07 #; Lymphocytes # 2.5 10*3/uL (1.4-4.0); Lymphocytes % 18.3 % (21.2-54.2); Mean Corpuscular HGB Conc 32.1 GM/DL (32-36); Mean Corpuscular Volume 82.5 FL (87-102); Mean Platelet Volume 9.3 FL (9.6-12.0); Monocytes % 7.8 % (1.7-12.7); Neutrophils % 71.2 % (38.7-73.9); Platelet Count 227 T/CUMM (130-400); Red Blood Count 4.91 MC/CUMM (3.8-5.5); Red Cell Distribution Width 14.4 % (9.3-17.3); White Blood Count 13.6 T/CUMM (4-12)
[2019-01-13 05:59] LABS: Calcium 8.1 MG/DL (8.5-10.1); Osmolality,Calculated 275.7 MOS/KG (273-304)
[2019-01-13 07:29] LABS: Risk Ratio 2.08; Thyroid Stimulating Hormone 1.67 uIU/ml (0.358-3.74); VLDL CHOLESTEROL 12.6 MG/DL
[2019-01-13] MEDS: amLODIPine 10 MG TABLET PO SCH (09:19)
[2019-01-13] MEDS: LISINOPRIL 20 MG TABLET PO SCH ×2 (09:19→21:51)
[2019-01-13] MEDS: PANTOPRAZOLE 40 MG TABLET PO SCH (09:19)
[2019-01-13] MEDS: THIAMINE 100 MG TABLET PO SCH (09:19)
[2019-01-13] MEDS: NICOTINE 7 MG/24 HR PATCH TRANSDERM SCH (10:27)
[2019-01-13] MEDS: ALBUTEROL/IPRATROPIUM 3 ML NEB RESP TX SCH ×2 (12:00→20:40)
[2019-01-13] MEDS: FOLIC ACID 1 MG TABLET PO SCH (21:51)
[2019-01-14] MEDS: ALBUTEROL/IPRATROPIUM 3 ML NEB RESP TX SCH ×4 (01:50→19:03)
[2019-01-14 05:29] LABS: Basophils # 0.1 10*3/uL (0.0-0.2); Basophils % 0.4 % (0.0-0.8); Eosinophils # 0.3 10*3/uL (0.0-0.87); Eosinophils % 2.1 % (0.00-10.9); Hematocrit 40.5 VOL% (42.0-52.0); Hemoglobin 12.9 GM/DL (14.0-18.0); Immature Granulocytes % 0.5 %; Immature Granulocytes Absolute 0.07 #; Lymphocytes # 2.7 10*3/uL (1.4-4.0); Lymphocytes % 20.3 % (21.2-54.2); Mean Corpuscular HGB Conc 31.9 GM/DL (32-36); Mean Corpuscular Volume 82.2 FL (87-102); Mean Platelet Volume 9.3 FL (9.6-12.0); Monocytes % 7.7 % (1.7-12.7); Platelet Count 224 T/CUMM (130-400); Red Blood Count 4.93 MC/CUMM (3.8-5.5); Red Cell Distribution Width 14.2 % (9.3-17.3); White Blood Count 13.2 T/CUMM (4-12)
[2019-01-14 05:30] LABS: Calcium 7.4 MG/DL (8.5-10.1); Osmolality,Calculated 275.4 MOS/KG (273-304)
[2019-01-14] MEDS: CLINDAMYCIN INJ 600 MG in PREMIX 1 EACH IV SCH ×3 (05:46→21:12)
[2019-01-14] MEDS: NICOTINE 7 MG/24 HR PATCH TRANSDERM SCH (10:26)
[2019-01-14] MEDS: SODIUM CHLORIDE 0.9% 1,000 ML IV SCH ×2 (10:27→16:06)
[2019-01-14] MEDS: THIAMINE 100 MG TABLET PO SCH (16:01)
[2019-01-14] MEDS: amLODIPine 10 MG TABLET PO SCH (16:01)
[2019-01-14] MEDS: LISINOPRIL 20 MG TABLET PO SCH ×2 (16:01→21:12)
[2019-01-14] MEDS: PANTOPRAZOLE 40 MG TABLET PO SCH (16:01)
[2019-01-14 18:39] LABS: Apearance,Urine CLEAR (Clear); Bilirubin,Urine Negative (Negative); Blood, Urine Negative (Negative); Glucose,Urine (UA) Negative (Negative); Ketones,Urine Negative (Negative); Nitrite,Urine Negative (Negative); Protein,Urine Negative; RBC,Urine 1 /HPF (0-4); Urine Color Yellow (Yellow); Urine Urobilinogen < 2.0 EU/DL (0.2-1.0); WBC,Urine <1 /HPF (0-6)
[2019-01-14] MEDS: FOLIC ACID 1 MG TABLET PO SCH (21:12)
[2019-01-15] MEDS: ALBUTEROL/IPRATROPIUM 3 ML NEB RESP TX SCH ×2 (00:03→07:27)
[2019-01-15] MEDS: SODIUM CHLORIDE 0.9% 1,000 ML IV SCH (00:22)
[2019-01-15] MEDS: CLINDAMYCIN INJ 600 MG in PREMIX 1 EACH IV SCH ×2 (04:55→14:46)
[2019-01-15] MEDS: PANTOPRAZOLE 40 MG TABLET PO SCH (09:57)
[2019-01-15] MEDS: LISINOPRIL 20 MG TABLET PO SCH (09:57)
[2019-01-15] MEDS: amLODIPine 10 MG TABLET PO SCH (09:57)
[2019-01-15] MEDS: THIAMINE 100 MG TABLET PO SCH (09:57)
[2019-01-15] MEDS: NICOTINE 7 MG/24 HR PATCH TRANSDERM SCH (09:58)
[2019-01-15 13:49] VITALS: BP 115/78
== END 2019-01-15 14:20 | disposition home or self-care (01) | DRG 603 ==
LOC: N.ED 06:29 → SUATTDRO 14:21 → N.EDINP 14:21 → N.2E 18:01
PROVIDERS: ADMIT Internal Medicine; ATTEND Hospitalist

== ENCOUNTER 2019-01-21 19:22 | Inpatient (IN) ==
[2019-01-21] MEDS ORDERED: CEFEPIME 2,000 MG in SODIUM CHLORIDE 0.9% 100 ML IV STA (21:08)
[2019-01-21 22:19] LABS: Basophils # 0.1 10*3/uL (0.0-0.2); Basophils % 0.5 % (0.0-0.8); Eosinophils # 0.4 10*3/uL (0.0-0.87); Eosinophils % 1.9 % (0.00-10.9); Hematocrit 47.6 VOL% (42.0-52.0); Immature Granulocytes % 0.5 %; Lymphocytes # 3.7 10*3/uL (1.4-4.0); Lymphocytes % 19.8 % (21.2-54.2); Mean Corpuscular HGB Conc 31.5 GM/DL (32-36); Mean Corpuscular Volume 82.6 FL (87-102); Neutrophils % 70.3 % (38.7-73.9); Platelet Count 335 T/CUMM (130-400); Red Blood Count 5.76 MC/CUMM (3.8-5.5); Red Cell Distribution Width 15.8 % (9.3-17.3); White Blood Count 18.9 T/CUMM (4-12)
[2019-01-21] MEDS ORDERED: MORPHINE 4 MG/1 ML VIAL IV STA (22:50)
[2019-01-21] MEDS ORDERED: ONDANSETRON 4 MG/2 ML VIAL IV STA (22:50)
[2019-01-21] MEDS ORDERED: SODIUM CHLORIDE 0.9% 1,000 ML IV STA (23:43)
[2019-01-21 23:59] LABS: Alanine Aminotransferase 23 U/L (16-61); Alkaline Phosphatase 87 U/L (45-117); Aspartate Amino Transferase 22 U/L (0-37); Bilirubin,Total < 0.39 MG/DL (0.2-1.0); Total Protein 8.3 G/DL (6.4-8.3)
[2019-01-22] LABS: Albumin 4.2 G/DL (3.4-5.0); Blood Urea Nitrogen 12 MG/DL (7-18); Glucose 82 MG/DL (74-106); Osmolality,Calculated 273.7 MOS/KG (273-304)
[2019-01-22] MEDS ORDERED: DOCUSATE SODIUM 100 MG CAPSULE PO PRN (03:53)
[2019-01-22] MEDS ORDERED: ONDANSETRON 4 MG/2 ML VIAL IV PRN (03:53)
[2019-01-22] MEDS ORDERED: ACETAMINOPHEN 325 MG TABLET PO PRN (03:53)
[2019-01-22] MEDS ORDERED: MORPHINE 4 MG/1 ML VIAL IV PRN (03:53)
[2019-01-22] MEDS: SODIUM CHLORIDE 0.9% 1,000 ML IV SCH (05:00)
[2019-01-22] MEDS ORDERED: CEFTAROLINE 600 MG in SODIUM CHLORIDE 0.9% 100 ML IV SCH (05:00)
[2019-01-22] MEDS ORDERED: CEFTAROLINE 600 MG VIAL IV ONE (05:02)
[2019-01-22] MEDS ORDERED: SODIUM CHLORIDE 0.9% 100 ML IV ONE (05:03)
[2019-01-22 05:50] LABS: Basophils # 0.1 10*3/uL (0.0-0.2); Basophils % 0.3 % (0.0-0.8); Eosinophils # 0.1 10*3/uL (0.0-0.87); Eosinophils % 0.6 % (0.00-10.9); Hemoglobin 13.6 GM/DL (14.0-18.0); Immature Granulocytes % 0.6 %; Immature Granulocytes Absolute 0.13 #; Lymphocytes # 2.6 10*3/uL (1.4-4.0); Lymphocytes % 12.1 % (21.2-54.2); Mean Corpuscular HGB Conc 33.2 GM/DL (32-36); Mean Corpuscular Volume 81.2 FL (87-102); Mean Platelet Volume 8.8 FL (9.6-12.0); Monocytes % 6.5 % (1.7-12.7); Neutrophils % 79.9 % (38.7-73.9); Platelet Count 286 T/CUMM (130-400); Red Blood Count 5.05 MC/CUMM (3.8-5.5); Red Cell Distribution Width 14.2 % (9.3-17.3); White Blood Count 21.8 T/CUMM (4-12)
[2019-01-22 06:09] LABS: Calcium 8.5 MG/DL (8.5-10.1)
[2019-01-22 06:39] LABS: Band Neutrophils 2 % (0-10); Lymphocytes 8 % (20-55); Platelet Estimate Normal; Segmented Neutrophils 84 % (50-85); Total Cells Counted 100
[2019-01-22] MEDS: THIAMINE 100 MG TABLET PO SCH (15:02)
[2019-01-22] MEDS: NICOTINE 7 MG/24 HR PATCH TRANSDERM SCH (15:02)
[2019-01-22] MEDS: amLODIPine 10 MG TABLET PO SCH (15:03)
[2019-01-22] MEDS: AMPICILLIN/SULBACTAM 3,000 MG in SODIUM CHLORIDE 0.9% 100 ML IV SCH ×2 (16:44→21:28)
[2019-01-22] MEDS: CHLORHEXIDINE 0.12% ORAL RINSE 60 ML BOTTLE SWISH/SPIT SCH ×2 (18:21→21:28)
[2019-01-22] MEDS: ALBUTEROL/IPRATROPIUM 3 ML NEB RESP TX SCH (20:10)
[2019-01-22] MEDS: ZALEPLON 5 MG CAPSULE PO PRN (21:28)
[2019-01-22] MEDS: LISINOPRIL 20 MG TABLET PO SCH (21:29)
[2019-01-22] MEDS: FOLIC ACID 1 MG TABLET PO SCH (21:29)
[2019-01-23] MEDS: ALBUTEROL/IPRATROPIUM 3 ML NEB RESP TX SCH ×4 (01:12→19:00)
[2019-01-23] MEDS: SODIUM CHLORIDE 0.9% 1,000 ML IV SCH ×3 (02:48→13:30)
[2019-01-23] MEDS: AMPICILLIN/SULBACTAM 3,000 MG in SODIUM CHLORIDE 0.9% 100 ML IV SCH ×4 (02:48→21:28)
[2019-01-23 04:37] LABS: Basophils # 0.1 10*3/uL (0.0-0.2); Basophils % 0.4 % (0.0-0.8); Eosinophils # 0.3 10*3/uL (0.0-0.87); Eosinophils % 1.7 % (0.00-10.9); Hematocrit 37.5 VOL% (42.0-52.0); Immature Granulocytes % 0.6 %; Immature Granulocytes Absolute 0.09 #; Lymphocytes # 2.9 10*3/uL (1.4-4.0); Lymphocytes % 17.8 % (21.2-54.2); Mean Corpuscular Volume 82.4 FL (87-102); Mean Platelet Volume 9.3 FL (9.6-12.0); Monocytes % 6.5 % (1.7-12.7); Platelet Count 244 T/CUMM (130-400); Red Blood Count 4.55 MC/CUMM (3.8-5.5); White Blood Count 16.3 T/CUMM (4-12)
[2019-01-23 05:00] LABS: Calcium 8.5 MG/DL (8.5-10.1); Osmolality,Calculated 276.4 MOS/KG (273-304)
[2019-01-23] MEDS: NICOTINE 7 MG/24 HR PATCH TRANSDERM SCH (08:55)
[2019-01-23] MEDS: CHLORHEXIDINE 0.12% ORAL RINSE 60 ML BOTTLE SWISH/SPIT SCH ×2 (08:56→21:29)
[2019-01-23] MEDS: LISINOPRIL 20 MG TABLET PO SCH ×2 (10:08→21:28)
[2019-01-23] MEDS: amLODIPine 10 MG TABLET PO SCH (10:08)
[2019-01-23] MEDS: THIAMINE 100 MG TABLET PO SCH (10:08)
[2019-01-23] MEDS ORDERED: CHLORHEXIDINE 0.12% ORAL RINSE 60 ML BOTTLE SWISH/SPIT ONE (11:56)
[2019-01-23] MEDS ORDERED: LIDOCAINE 1%/EPI INJ 20 ML VIAL ONE (11:56)
[2019-01-23] MEDS ORDERED: MEPERIDINE 25 MG/1 ML VIAL ONE (13:06)
[2019-01-23] MEDS ORDERED: PROPOFOL 200 MG/20 ML VIAL IV ONE (13:07)
[2019-01-23] MEDS ORDERED: LABETALOL 100 MG/20 ML VIAL IV ONE (13:07)
[2019-01-23] MEDS ORDERED: ONDANSETRON 4 MG/2 ML VIAL ONE ×2 (13:07→13:08)
[2019-01-23] MEDS ORDERED: ROCURONIUM 100 MG/10 ML VIAL IV ONE (13:08)
[2019-01-23] MEDS ORDERED: DEXAMETHASONE 4 MG/1 ML VIAL ONE (13:08)
[2019-01-23] MEDS ORDERED: NEOSTIGMINE 10 MG/10 ML VIAL ONE (13:08)
[2019-01-23] MEDS ORDERED: GLYCOPYRROLATE 0.4 MG/2 ML VIAL ONE (13:08)
[2019-01-23] MEDS ORDERED: MIDAZOLAM 2 MG/2 ML VIAL ONE (13:08)
[2019-01-23] MEDS ORDERED: SEVOFLURANE 1 UNIT/15 MINUTE INH ONE (13:08)
[2019-01-23] MEDS ORDERED: fentaNYL 100 MCG/2 ML VIAL ONE (13:08)
[2019-01-23] MEDS ORDERED: PROMETHAZINE INJ 25 MG in SODIUM CHLORIDE 0.9% 50 ML IV PRN (13:14)
[2019-01-23] MEDS ORDERED: ONDANSETRON 4 MG/2 ML VIAL IV PRN (13:14)
[2019-01-23] MEDS ORDERED: MEPERIDINE 25 MG/1 ML VIAL IV PRN (13:14)
[2019-01-23] MEDS ORDERED: HYDROmorphone 2 MG/1 ML VIAL IV PRN (13:14)
[2019-01-23] MEDS ORDERED: LABETALOL 20 MG/4 ML SYRINGE IV ONE (13:16)
[2019-01-23] MEDS: POTASSIUM CHLORIDE 20 MEQ TABLET PO PRN ×2 (18:53→23:51)
[2019-01-23] MEDS: FOLIC ACID 1 MG TABLET PO SCH (21:28)
[2019-01-23] MEDS: ZALEPLON 5 MG CAPSULE PO PRN (23:51)
[2019-01-24] MEDS: ALBUTEROL/IPRATROPIUM 3 ML NEB RESP TX SCH ×3 (00:40→12:55)
[2019-01-24] MEDS: SODIUM CHLORIDE 0.9% 1,000 ML IV SCH (01:58)
[2019-01-24] MEDS: AMPICILLIN/SULBACTAM 3,000 MG in SODIUM CHLORIDE 0.9% 100 ML IV SCH ×2 (02:18→09:56)
[2019-01-24] MEDS: POTASSIUM CHLORIDE 20 MEQ TABLET PO PRN (02:19)
[2019-01-24 05:15] LABS: Basophils % 0.2 % (0.0-0.8); Hematocrit 36.5 VOL% (42.0-52.0); Hemoglobin 11.9 GM/DL (14.0-18.0); Immature Granulocytes % 0.4 %; Immature Granulocytes Absolute 0.07 #; Lymphocytes # 1.6 10*3/uL (1.4-4.0); Lymphocytes % 9.2 % (21.2-54.2); Mean Corpuscular HGB Conc 32.6 GM/DL (32-36); Mean Corpuscular Volume 81.8 FL (87-102); Mean Platelet Volume 9.6 FL (9.6-12.0); Monocytes % 3.7 % (1.7-12.7); Neutrophils % 86.5 % (38.7-73.9); Platelet Count 270 T/CUMM (130-400); Red Blood Count 4.46 MC/CUMM (3.8-5.5); White Blood Count 17.8 T/CUMM (4-12)
[2019-01-24 05:42] LABS: Calcium 8.8 MG/DL (8.5-10.1); Osmolality,Calculated 279.3 MOS/KG (273-304)
[2019-01-24] MEDS: NICOTINE 7 MG/24 HR PATCH TRANSDERM SCH (09:55)
[2019-01-24] MEDS: THIAMINE 100 MG TABLET PO SCH (09:56)
[2019-01-24] MEDS: LISINOPRIL 20 MG TABLET PO SCH (09:56)
[2019-01-24] MEDS: amLODIPine 10 MG TABLET PO SCH (09:56)
[2019-01-24] MEDS: CHLORHEXIDINE 0.12% ORAL RINSE 60 ML BOTTLE SWISH/SPIT SCH (09:57)
[2019-01-24 12:53] VITALS: BP 125/75
== END 2019-01-24 13:20 | disposition home or self-care (01) | DRG 158 ==
LOC: N.ED 19:22 → N.EDINP 01-22 02:19 → N.2E 01-22 13:21
PROVIDERS: ADMIT Internal Medicine; ATTEND Internal Medicine

== ENCOUNTER 2019-05-08 07:42 | Observation (INO) ==
[2019-05-08] MEDS ORDERED: methylPREDNISolone SOD SUC 125 MG/2 ML VIAL IV STA (08:26)
[2019-05-08] MEDS ORDERED: ALBUTEROL 2.5 MG/3 ML NEB RESP TX STA (08:26)
[2019-05-08] MEDS ORDERED: ALBUTEROL/IPRATROPIUM 3 ML NEB RESP TX STA (08:26)
[2019-05-08 09:12] LABS: Basophils % 0.5 % (0.0-0.8); Eosinophils # 0.3 10*3/uL (0.0-0.87); Eosinophils % 3.4 % (0.00-10.9); Hematocrit 45.9 VOL% (42.0-52.0); Hemoglobin 14.5 GM/DL (14.0-18.0); Immature Granulocytes % 0.3 %; Immature Granulocytes Absolute 0.03 #; Lymphocytes # 2.7 10*3/uL (1.4-4.0); Lymphocytes % 31.1 % (21.2-54.2); Mean Corpuscular HGB Conc 31.6 GM/DL (32-36); Mean Corpuscular Volume 82.9 FL (87-102); Mean Platelet Volume 9.4 FL (9.6-12.0); Monocytes % 6.3 % (1.7-12.7); Neutrophils % 58.4 % (38.7-73.9); Platelet Count 286 T/CUMM (130-400); Red Blood Count 5.54 MC/CUMM (3.8-5.5); Red Cell Distribution Width 14.4 % (9.3-17.3); White Blood Count 8.7 T/CUMM (4-12)
[2019-05-08 09:31] LABS: Alanine Aminotransferase 27 U/L (16-61); Albumin 3.8 G/DL (3.4-5.0); Alkaline Phosphatase 74 U/L (45-117); Aspartate Amino Transferase 22 U/L (0-37); Bilirubin,Total < 0.39 MG/DL (0.2-1.0); Blood Urea Nitrogen 9 MG/DL (7-18); Calcium 8.9 MG/DL (8.5-10.1); Glucose 83 MG/DL (74-106); Osmolality,Calculated 280.1 MOS/KG (273-304)
[2019-05-08] MEDS ORDERED: SODIUM CHLORIDE 0.9% 1,000 ML IV STA (09:42)
[2019-05-08] MEDS ORDERED: cefTRIAXone 1,000 MG VIAL IM STA (09:42)
[2019-05-08] MEDS ORDERED: NICOTINE 21 MG/24 HR PATCH TRANSDERM PRN (10:35)
[2019-05-08] MEDS ORDERED: DOCUSATE SODIUM 100 MG CAPSULE PO PRN (10:35)
[2019-05-08] MEDS ORDERED: LORazepam 2 MG/1 ML VIAL IV PRN (10:56)
[2019-05-08 11:14] LABS: Thyroid Stimulating Hormone 0.989 uIU/ml (0.358-3.74)
[2019-05-08] MEDS: ENOXAPARIN 40 MG/0.4 ML SYRINGE SUBCUT SCH (11:25)
[2019-05-08 11:38] LABS: ABG Base Excess 2.5 MMOL/L (-2.5-2.5); ABG HCO3 27.3 MMOL/L (20-26); ABG PCO2 42.6 MM HG (35-48); ABG PH 7.424 (7.35-7.45); ABG PO2 71.4 MM HG (80-95); ABG TCO2 28.6 MMOL/L (23-27)
[2019-05-08 13:10] LABS: Barbiturates Screen,Urine Negative (Negative); Benzodiazepines Screen,Urine Negative (Negative); Cannabinoid Screen,Urine Negative (Negative); Opiate Screen,Urine Negative (Negative); Phencyclidine Screen,Urine Negative (Negative)
[2019-05-08] MEDS ORDERED: hydrALAZINE 20 MG/1 ML VIAL IV PRN (13:47)
[2019-05-08] MEDS: amLODIPine 5 MG TABLET PO SCH (14:01)
[2019-05-08] MEDS: SODIUM CHLORIDE 0.9% 1,000 ML IV SCH ×2 (15:39→23:38)
[2019-05-08] MEDS: ACETAMINOPHEN 325 MG TABLET PO PRN (21:15)
[2019-05-09 05:26] LABS: Basophils % 0.1 % (0.0-0.8); Hematocrit 41.7 VOL% (42.0-52.0); Hemoglobin 13.6 GM/DL (14.0-18.0); Immature Granulocytes % 0.5 %; Lymphocytes # 1.9 10*3/uL (1.4-4.0); Mean Corpuscular HGB Conc 32.6 GM/DL (32-36); Mean Corpuscular Volume 81.1 FL (87-102); Mean Platelet Volume 9.5 FL (9.6-12.0); Monocytes % 2.9 % (1.7-12.7); Neutrophils % 86.5 % (38.7-73.9); Platelet Count 277 T/CUMM (130-400); Red Blood Count 5.14 MC/CUMM (3.8-5.5); Red Cell Distribution Width 14.1 % (9.3-17.3); White Blood Count 19.5 T/CUMM (4-12)
[2019-05-09 05:51] LABS: Calcium 8.6 MG/DL (8.5-10.1); Osmolality,Calculated 281.3 MOS/KG (273-304)
[2019-05-09] MEDS: SODIUM CHLORIDE 0.9% 1,000 ML IV SCH (07:12)
[2019-05-09] MEDS: PANTOPRAZOLE 40 MG TABLET PO SCH (08:42)
[2019-05-09] MEDS: amLODIPine 5 MG TABLET PO SCH (08:42)
[2019-05-09] MEDS: methylPREDNISolone SOD SUC 40 MG/1 ML VIAL IV SCH ×2 (08:42→17:01)
[2019-05-09] MEDS: ACETAMINOPHEN 325 MG TABLET PO PRN ×2 (08:44→21:02)
[2019-05-09] MEDS: ALBUTEROL/IPRATROPIUM 3 ML NEB RESP TX PRN ×2 (08:55→12:10)
[2019-05-09] MEDS: ENOXAPARIN 40 MG/0.4 ML SYRINGE SUBCUT SCH (11:14)
[2019-05-09] MEDS: ALBUTEROL/IPRATROPIUM 3 ML NEB RESP TX SCH ×3 (15:55→23:33)
[2019-05-09] MEDS ORDERED: amLODIPine 10 MG TABLET PO SCH (17:10)
[2019-05-10] MEDS: methylPREDNISolone SOD SUC 40 MG/1 ML VIAL IV SCH ×2 (01:18→08:52)
[2019-05-10] MEDS: ALBUTEROL/IPRATROPIUM 3 ML NEB RESP TX SCH ×4 (02:21→14:35)
[2019-05-10 06:12] LABS: Basophils % 0.1 % (0.0-0.8); Hematocrit 37.3 VOL% (42.0-52.0); Hemoglobin 12.2 GM/DL (14.0-18.0); Immature Granulocytes % 0.8 %; Immature Granulocytes Absolute 0.18 #; Lymphocytes # 0.8 10*3/uL (1.4-4.0); Lymphocytes % 3.6 % (21.2-54.2); Mean Corpuscular HGB Conc 32.7 GM/DL (32-36); Mean Corpuscular Volume 82.2 FL (87-102); Mean Platelet Volume 9.9 FL (9.6-12.0); Monocytes % 1.6 % (1.7-12.7); Neutrophils % 93.9 % (38.7-73.9); Platelet Count 260 T/CUMM (130-400); Red Blood Count 4.54 MC/CUMM (3.8-5.5); Red Cell Distribution Width 14.6 % (9.3-17.3); White Blood Count 21.7 T/CUMM (4-12)
[2019-05-10 06:42] LABS: Calcium 8.5 MG/DL (8.5-10.1)
[2019-05-10 07:05] LABS: Lymphocytes 3 % (20-55); Platelet Estimate Normal; Segmented Neutrophils 95 % (50-85); Total Cells Counted 100
[2019-05-10] MEDS: PANTOPRAZOLE 40 MG TABLET PO SCH (08:52)
[2019-05-10] MEDS ORDERED: AZITHROMYCIN INJ 500 MG in SODIUM CHLORIDE 0.9% 250 ML IV SCH (09:30)
[2019-05-10 12:25] VITALS: BP 128/74
[2019-05-10] MEDS: ENOXAPARIN 40 MG/0.4 ML SYRINGE SUBCUT SCH (12:37)
[2019-05-10] MEDS ORDERED: methylPREDNISolone SOD SUC 40 MG/1 ML VIAL IV SCH (21:00)
== END 2019-05-10 16:00 | disposition home or self-care (01) ==
LOC: N.ED 07:42 → N.EDINP 07:42 → SUATTDRO 10:35 → N.5E 12:26
PROVIDERS: ADMIT Internal Medicine Cardiovascular Disease; ATTEND Internal Medicine